=== PATIENT | male | born 1945 | race Caucasian/White ===

== ENCOUNTER 2020-05-08 06:45 | Outpatient (NON) | payer MEDICARE, SELFPAY ==
[2020-05-08 19:00] LABS: SARS-CoV-2 RNA PCR Negative
== END 2020-05-08 06:46 ==
PROVIDERS: PCP Internal Medicine; Visit Provider Internal Medicine
DX: Z20.828 Contact with and (suspected) exposure to other viral communicable diseases (principal); R68.89 Other general symptoms and signs
CPT/HCPCS: 87635; C9803; U0003

== ENCOUNTER → 2021-06-11 11:22 | Outpatient (CLI) | payer MEDICARE, SELFPAY ==
--- NOTE | ~2021-06-11 | XR_ITS ---
XR lumbar spine min 4V DATE: 06/11/2021 12:24 INDICATION: Low back pain TECHNIQUE: AP, lateral, bilateral oblique views and coned lateral lumbosacral view COMPARISON: 02/13/2011 lumbar spine FINDINGS: There is diffuse osteopenia. Normal alignment of the lumbar spine. No fracture, bone destruction, spondylolysis or spondylolisthes is. There is mild degenerative disease at L3-4 and L4-5 primarily. The sacroiliac joints are intact. IMPRESSION: Diffuse osteopenia Mild degenerative disc disease Reviewed, dictated and finalized at location A. [employer] C[employer] COORDINATOR
--- NOTE | ~2021-06-11 | XR_ITS ---
XR hip LT 2V w AP pelvis DATE: 06/11/2021 12:24 INDICATION: Left hip pain TECHNIQUE: AP, lateral views of left hip. AP pelvis. COMPARISON: None FINDINGS: The pubic symphysis and sacroiliac joints are normally aligned. No pelvic fracture or bone destruction. No fracture or dislocation, avascular necrosis or bone destruction of the left hip. There is mild lef t hip osteoarthritis. IMPRESSION: Mild left hip osteoarthritis Reviewed, dictated and finalized at location A. COVERER
== END ==
PROVIDERS: PCP Nurse Practitioner; Visit Provider Nurse Practitioner
DX: M16.12 Unilateral primary osteoarthritis, left hip (principal); M51.36 Other intervertebral disc degeneration, lumbar region; M85.88 Other specified disorders of bone density and structure, other site
CPT/HCPCS: 72110; 73502

== ENCOUNTER 2021-07-29 00:12 | Day surgery (SDC) | payer MEDICARE, SELFPAY ==
[2021-07-11 14:17] VITALS: BMI 25.9
[2021-07-29 07:55] VITALS: BP 138/84; PULSE 74; RESP 18; TEMP 35.8; O2SAT 97; BMI 25.1
[2021-07-29] MEDS: LACTATED RINGERS 1,000 ML 150 ML IV CONT (08:18)
--- NOTE | 2021-07-29 08:18 | WPDANESEPPF ---
Anes - Initial Pre Proc Eval Procedure: Operation Date: 07/29/21 09:00 Proposed Procedures p Screening Colonoscopy - Chalo Noel MD Date/Time: 07/29/21 08:18 Surgeon: Chalo Noel MD Pre Op Diagnosis: family hx of colon ca Patient Data Age: 75 Gender: M Height: 1.8 m Weight: 81.8 kg Last Vital Signs Temp 35.8 C L 07/29/21 07:55 Pulse 74 07/29/21 07:55 Resp 18 07/29/21 07:55 BP 138/84 07/29/21 07:55 Pulse Ox 97 07/29/21 07:55 Allergies Allergy/AdvReac Type Severity Reaction Status Date / Time shellfish derived Allergy Unknown Rash Verified 07/29/21 08:04 Sulfa (Sulfonamide Allergy Unknown Rash Verified 07/29/21 08:04 Antibiotics) SHELLFISH Allergy Unknown Rash Uncoded 07/29/21 08:04 Home Medications Medication Instructions Recorded Confirmed Type omega-3 acid ethyl esters 1 gram 4 cap PO DAILY 90 Days #360 cap 07/02/20 07/29/21 Rx capsule aspirin 325 mg tablet 325 mg PO DAILY 12/18/20 07/29/21 History levothyroxine 25 mcg tablet 25 mcg PO DAILY 90 Days #90 tablet 04/29/21 07/29/21 Rx ascorbic acid (vitamin C) 500 mg 500 mg PO DAILY cap 05/14/21 07/29/21 History capsule cholecalciferol (vitamin D3) 25 25 mcg PO DAILY 05/14/21 07/29/21 History mcg (1,000 unit) capsule metoprolol tartrate 25 mg tablet 25 mg PO BID tablet 05/14/21 07/29/21 History primidone 50 mg tablet 50 mg PO QHS #90 tablet 05/14/21 07/29/21 Rx methylprednisolone 4 mg tablets in See Rx Instructions PO PER PKG DIR 06/11/21 07/29/21 Rx a dose pack #21 ea finasteride [Proscar] 5 mg PO DAILY 07/11/21 07/29/21 History pitavastatin calcium [Livalo] 1 mg PO DAILY 07/11/21 07/29/21 History Patient hx anesthesia problems: none Family hx anesthesia problems: none Results Review: All pre-operative results and documents have been reviewed as part of the pre-operative evaluation. [facility] Past Medical History Medical History Benign prostatic hyperplasia with lower urinary tract symptoms Family history of colon cancer Hypothyroidism Mixed hyperlipidemia Pacemaker (~2012) Vitamin D deficiency, unspecified Surgical History Surgical History Status cardiac pacemaker 2012 Family History Family History Father Hypertension Heart disease Mother Parkinson disease Sibling Cerebrovascular accident Grandparent Cancer paternal grandparent Heart disease both maternal and paternal grandparents Hypertension maternal grandparent Social History Social History Years smoked: 2 Smoking status: Former smoker Second hand tobacco smoke exposure: No Alcohol intake: current Drinks per week: 7 Alcohol use details: 2 drinks per evening Substance use: never Substance use type: does not use Anes - Eval Final PreProcedure Day of Procedure 07/29/21 08:18 Patient weight: normal Heart: regular rate and rhythm Lungs: clear to auscultation Airway: Mallampati scale class II Neurological: alert and oriented Last oral intake: >/= 8 hours ASA classification: III Emergent: no Anesthetic plan: proceed Anesthesia type and monitoring: general GIVS and standard monitoring Results Review: All pre-operative results and documents have been reviewed as part of the pre-operative evaluation. Informed Consent: The patient's anesthetic plan and its attendant risks and benefits were discussed with the patient/family/POA. Questions were solicited and answers provided to the satisfaction of the patient/family/POA.
--- NOTE | 2021-07-29 08:32 | PM.HPGS ---
History of Present Illness History of Present Illness Consent: Risks, benefits, and alternatives have been discussed and questions answered. Patient agrees to proceed with procedure. Chief complaint: family hx of colon ca Narrative: Alan Frederick is a 75 year old male here for colonoscopy, lat one about 5 years ago and brother had colon cancer. Review of Systems Constitutional: Constitutional: Denies headache(s) and Denies weakness Eyes: Eyes: Denies blurry vision ENT: Reports Normal hearing present, Denies headache(s) and Denies neck pain Cardiovascular: Cardiovascular: Denies chest pain and Denies dyspnea Respiratory: Respiratory: Denies dyspnea Gastrointestinal: Gastrointestinal: Reports no additional gastrointestinal complaints Genitourinary: Genitourinary: Denies dysuria Musculoskeletal: Musculoskeletal: Denies neck pain Integumentary/Breasts: Skin/Breast: Denies dry skin Neurologic: Reports Normal hearing present, Denies headache(s) and Denies weakness Psychiatric: Psychiatric: Denies anxiety Endocrine: Endocrine: Denies change in body appearance Hematologic/Lymphatic: Hematologic/Lymphatic: Denies easy bleeding Allergic/Immunologic: Allergic/Immunologic: Denies urticaria [facility] Past Medical History Medical History (Updated 07/29/21 @ 08:34 by Chalo Noel MD) Benign prostatic hyperplasia with lower urinary tract symptoms Colon cancer screening Family history of colon cancer Hypothyroidism Mixed hyperlipidemia Pacemaker (~2012) Vitamin D deficiency, unspecified Surgical History Surgical History Status cardiac pacemaker 2012 Family History Family History Father Hypertension Heart disease Mother Parkinson disease Sibling Cerebrovascular accident Grandparent Cancer paternal grandparent Heart disease both maternal and paternal grandparents Hypertension maternal grandparent Social History Social History Years smoked: 2 Smoking status: Former smoker Second hand tobacco smoke exposure: No Alcohol intake: current Drinks per week: 7 Alcohol use details: 2 drinks per evening Substance use: never Substance use type: does not use Meds Home Medications and Allergies Home Medications Medication Instructions Recorded Confirmed Type omega-3 acid ethyl esters 1 gram 4 cap PO DAILY 90 Days #360 cap 07/02/20 07/29/21 Rx capsule aspirin 325 mg tablet 325 mg PO DAILY 12/18/20 07/29/21 History levothyroxine 25 mcg tablet 25 mcg PO DAILY 90 Days #90 tablet 04/29/21 07/29/21 Rx ascorbic acid (vitamin C) 500 mg 500 mg PO DAILY cap 05/14/21 07/29/21 History capsule cholecalciferol (vitamin D3) 25 25 mcg PO DAILY 05/14/21 07/29/21 History mcg (1,000 unit) capsule metoprolol tartrate 25 mg tablet 25 mg PO BID tablet 05/14/21 07/29/21 History primidone 50 mg tablet 50 mg PO QHS #90 tablet 05/14/21 07/29/21 Rx methylprednisolone 4 mg tablets in See Rx Instructions PO PER PKG DIR 06/11/21 07/29/21 Rx a dose pack #21 ea finasteride [Proscar] 5 mg PO DAILY 07/11/21 07/29/21 History pitavastatin calcium [Livalo] 1 mg PO DAILY 07/11/21 07/29/21 History Allergies Allergy/AdvReac Type Severity Reaction Status Date / Time shellfish derived Allergy Unknown Rash Verified 07/29/21 08:04 Sulfa (Sulfonamide Allergy Unknown Rash Verified 07/29/21 08:04 Antibiotics) SHELLFISH Allergy Unknown Rash Uncoded 07/29/21 08:04 Vital Signs Vital Signs - 24 hr 07/29/21 07:55 Temperature 96.5 F L Pulse Rate 74 Respiratory Rate 18 Blood Pressure 138/84 Pulse Oximetry 97 Exam Const: General: comfortable and no acute distress HENMT: General nose exam: Normal nares present Eyes: General: appearance normal, both eyes and all related structures Neck: Neck: no J
[2021-07-29 08:52] VITALS: BP 91/56; PULSE 64; RESP 11; O2SAT 96
[2021-07-29 09:02] VITALS: BP 83/64; PULSE 60; RESP 16; O2SAT 98
[2021-07-29 09:12] VITALS: BP 113/80; PULSE 60; RESP 18; O2SAT 100
== END 2021-07-29 09:47 | disposition home or self-care (01) ==
PROVIDERS: PCP Family Medicine; Visit Provider Internal Medicine Gastroenterology
PROC: 0DJD8ZZ Inspection of Lower Intestinal Tract, Via Natural or Artificial Opening Endoscopic (ICD-10-PCS; CPT 45378; principal; 2021-07-29 09:00)
DX: Z12.11 Encounter for screening for malignant neoplasm of colon (principal); Z80.0 Family history of malignant neoplasm of digestive organs; K57.30 Diverticulosis of large intestine without perforation or abscess without bleeding; K64.8 Other hemorrhoids; N40.1 Benign prostatic hyperplasia with lower urinary tract symptoms; E03.9 Hypothyroidism, unspecified; E78.2 Mixed hyperlipidemia; E55.9 Vitamin D deficiency, unspecified; Z95.0 Presence of cardiac pacemaker; Z87.891 Personal history of nicotine dependence; Z79.82 Long term (current) use of aspirin
CPT/HCPCS: G0105; J2704; J7120

== ENCOUNTER 2022-05-28 09:38 | Outpatient (CLI) | payer MEDICARE, SELFPAY ==
[2022-05-28 19:14] LABS: Basophils Percent Auto 0.7 % (0.2-1.2); Eosinophils Absolute Auto 0.2 K/mm3 (0-0.3); Eosinophils Percent Auto 3.7 % (0-4.4); Hematocrit 46.4 % (42.0-52.0); Hemoglobin 15.2 g/dL (14.0-18.0); Immature Granulocyte Absolute 0.02 K/mm3 (0.00-0.031); Immature Granulocyte Percent A 0.4 % (0-0.5); Lymphocytes Absolute Auto 1.87 K/mm3 (0.9-3.2); Mean Corpuscular HGB Conc 32.8 g/dl (32-36); Mean Corpuscular Hemoglobin 32.4 pg (26-34); Mean Corpuscular Volume 98.9 fl (80-100); Monocytes Absolute Auto 0.5 K/mm3 (0.1-0.6); Monocytes Percent Auto 11.2 % (2.6-8.5); Platelet Count Result 233 k/mm3 (150-375); Red Blood Count 4.69 M/mm3 (4.6-6.20); Red Cell Distribution Width 12.2 % (11.5-14.5); White Blood Count 4.6 K/mm3 (4.5-10.0)
[2022-05-28 19:43] LABS: Alanine Aminotransferase 27 U/L (6-50); Albumin Level 4.5 g/dL (3.5-5.1); Alkaline Phosphatase 53 U/L (38-126); Anion Gap 10 mmol/L (8-16); Aspartate Amino Transferase 34 U/L (17-59); Bilirubin,Total 0.5 mg/dL (0.2-1.3); Blood Urea Nitrogen 17 mg/dL (9-20); Calcium 8.6 mg/dL (8.4-10.2); Carbon Dioxide 26 mmol/L (22-30); Chloride 100 mmol/L (98-107); Cholesterol 217 mg/dL (0-200); Estimated Glomerular Filt Rate > 60; Glucose 103 mg/dL (65-110); HDL Direct 51 mg/dL; Potassium 4.5 mmol/L (3.4-5.0); Sodium 136 mmol/L (137-145); Triglycerides 121 mg/dL (<150)
[2022-05-28 19:53] LABS: LDL Cholesterol Direct 113 mg/dL
[2022-05-28 20:05] LABS: Vitamin D 25 Hydroxy 45.1 ng/mL
== END 2022-05-28 09:39 | disposition home or self-care (01) ==
LOC: ANHGOSHLAB 09:43
PROVIDERS: PCP Family Medicine; Visit Provider Family Medicine
DX: Z00.00 Encounter for general adult medical examination without abnormal findings (principal); E78.5 Hyperlipidemia, unspecified; E03.9 Hypothyroidism, unspecified; E55.9 Vitamin D deficiency, unspecified; Z79.899 Other long term (current) drug therapy; E53.8 Deficiency of other specified B group vitamins
CPT/HCPCS: 36415; 80053; 80061; 82306; 82607; 84443; 85025

== ENCOUNTER 2022-11-21 08:54 | Emergency (ER) | payer MEDICARE, SELFPAY ==
--- NOTE | 2022-11-21 09:07 | ED.WOUNDLAC ---
HPI - Wound/Laceration General Chief Complaint: Wound/Laceration Stated Complaint: FINGER LACERATION Time Seen by Provider: 11/21/22 09:07 Source: patient Mode of arrival: ambulatory Limitations: no limitations History of Present Illness HPI narrative: 76-year-old male presents with laceration to his left index finger. Patient reports that he was trimming a branch a tree with his new pocket knife and plate was very sharp. Injury happened approximately 30 minutes prior to arrival. Patient reports that he takes blood thinners so is bleeding more than usual. Range of motion and distal neurovascularly intact. All systems reviewed and negative except as noted above. Related Data Home Medications Medication Instructions Recorded Confirmed ascorbic acid (vitamin C) 500 mg 500 mg PO DAILY 05/14/21 11/21/22 capsule cholecalciferol (vitamin D3) 25 25 mcg PO DAILY 05/14/21 11/21/22 mcg (1,000 unit) capsule metoprolol tartrate 25 mg tablet 25 mg PO BID 05/14/21 11/21/22 finasteride 5 mg tablet (Proscar) 5 mg PO DAILY 07/11/21 11/21/22 omega-3 acid ethyl esters 1 gram 2 cap PO DAILY 05/27/22 11/21/22 capsule dabigatran etexilate 150 mg 150 mg PO BID 06/23/22 11/21/22 capsule (Pradaxa) nitroglycerin 0.4 mg sublingual 0.4 mg sublingual Q5M PRN Chest 06/23/22 11/21/22 tablet Pain Allergies Allergy/AdvReac Type Severity Reaction Status Date / Time shellfish derived Allergy Unknown Rash Verified 06/23/22 13:04 Sulfa (Sulfonamide Allergy Unknown Rash Verified 06/23/22 13:04 Antibiotics) SHELLFISH Allergy Unknown Rash Uncoded 06/23/22 13:04 Review of Systems Review of Systems: CONSTITUTIONAL: Denies fever, chills, or sweats. EYES: Denies visual changes, redness, or discharge. ENT: Denies rhinorrhea, congestion, sore throat, or otalgia. CARDIOVASCULAR: Denies chest pain, palpitations, or edema. RESPIRATORY: Denies cough or dyspnea. GASTROINTESTINAL: Denies abdominal pain, nausea, vomiting, or diarrhea. GENITOURINARY: Denies dysuria or hematuria. SKIN: Denies rash or itching. Reports laceration to left index finger. MUSCULOSKELETAL: Denies back pain, joint pain, or myalgia. NEUROLOGIC: Denies headache, numbness, or weakness. PSYCHIATRIC: Denies anxiety or depression. All other systems reviewed are negative, except as documented in HPI. [facility] Past Medical History Medical History Benign prostatic hyperplasia with lower urinary tract symptoms Colon cancer screening Family history of colon cancer Hypothyroidism Mixed hyperlipidemia Pacemaker (~2012) Vitamin D deficiency, unspecified Surgical History Surgical History Status cardiac pacemaker 2012 Family History Family History Father Hypertension Heart disease Mother Parkinson disease Sibling Cerebrovascular accident Grandparent Cancer paternal grandparent Heart disease both maternal and paternal grandparents Hypertension maternal grandparent Social History Social History Years smoked: 2 Smoking status: Never smoker Second hand tobacco smoke exposure: No Alcohol intake: current Drinks per week: 7 Alcohol use details: 2 drinks per evening Substance use: never Substance use type: does not use Living arrangements: with family Comments At time of signature, agree with nursing past medical, surgical, social and family history. There is no relevant family history pertinent to the presenting complaint. Exam Narrative: GENERAL: This is a well-nourished, well-developed patient, in no apparent distress. HEAD: normocephalic, atraumatic. EYES: PERRL. Sclera clear/white. Vision is grossly intact. EARS: External ears normal NOSE: External nose normal NECK: Neck supple, non-tender wi
[2022-11-21 09:09] VITALS: BP 135/86; PULSE 62; RESP 16; TEMP 36.4; O2SAT 99
== END 2022-11-21 09:57 | disposition home or self-care (01) ==
PROVIDERS: Emergency Provider Nurse Practitioner Family; PCP Family Medicine
DX: S61.211A Laceration without foreign body of left index finger without damage to nail, initial encounter (principal); W26.0XXA Contact with knife, initial encounter; E03.9 Hypothyroidism, unspecified; E78.2 Mixed hyperlipidemia; E55.9 Vitamin D deficiency, unspecified; N40.1 Benign prostatic hyperplasia with lower urinary tract symptoms; Z95.0 Presence of cardiac pacemaker
CPT/HCPCS: 12001; 99212; G0463

== ENCOUNTER 2022-12-04 12:53 | Outpatient (CLI) | payer MEDICARE, SELFPAY ==
[2022-12-04 19:23] LABS: Alanine Aminotransferase 23 U/L (6-50); Albumin Level 4.2 g/dL (3.5-5.1); Alkaline Phosphatase 58 U/L (38-126); Anion Gap 5 mmol/L (8-16); Aspartate Amino Transferase 50 U/L (17-59); Bilirubin,Total 0.7 mg/dL (0.2-1.3); Blood Urea Nitrogen 18 mg/dL (9-20); Calcium 8.7 mg/dL (8.4-10.2); Carbon Dioxide 30 mmol/L (22-30); Chloride 101 mmol/L (98-107); Estimated Glomerular Filt Rate > 60; Glucose 86 mg/dL (65-110); Sodium 136 mmol/L (137-145)
== END 2022-12-04 12:54 | disposition home or self-care (01) ==
LOC: ANHGOSHLAB 12:55
PROVIDERS: PCP Family Medicine; Visit Provider Family Medicine
DX: G25.0 Essential tremor (principal); E78.2 Mixed hyperlipidemia; E03.9 Hypothyroidism, unspecified
CPT/HCPCS: 36415; 80053; 84443

== ENCOUNTER 2023-01-31 11:08 | Emergency (ER) | payer MEDICARE, SELFPAY ==
[2023-01-31 11:44] VITALS: BP 126/94; PULSE 65; RESP 16; O2SAT 99
--- NOTE | 2023-01-31 11:49 | ECG_ITS ---
Measurements Intervals [place] Rate: 65 P: [place]: 0 QRS: -56 QRSD: 165 T: 97 QT: 459 QTc: 478 Interpretive Statements ELECTRONIC VENTRICULAR PACEMAKER NO FURTHER INTERPRETATION IS POSSIBLE ATYPICAL ECG NO PREVIOUS ECG AVAILABLE FOR COMPARISON Electronically Signed On 01-31-2023 16:37:27 CDT by Leonel ORELLANA
--- NOTE | 2023-01-31 12:00 | ED.CHESTPAIN ---
HPI - Chest Pain General Chief Complaint: Chest Pain Stated Complaint: short of breath,indegestion with chest pain Source: patient and RN notes reviewed History of Present Illness HPI narrative: 77-year-old male with history of a-fib and pacemaker, presents to urgent care with complaints of intermittent chest pain since 04:30 this morning. Patient states he woke up in a cold sweat, stood up, and fell to the ground. Patient denies any LOC or head injury. Patient reports shortness of breath with any exertion. Patient is also reporting head fogginess. Denies any recent illness including fevers, vomiting, or diarrhea. Related Data Home Medications Medication Instructions Recorded Confirmed ascorbic acid (vitamin C) 500 mg 500 mg PO DAILY 05/14/21 01/31/23 capsule cholecalciferol (vitamin D3) 25 25 mcg PO DAILY 05/14/21 01/31/23 mcg (1,000 unit) capsule finasteride 5 mg tablet (Proscar) 5 mg PO DAILY 07/11/21 01/31/23 omega-3 acid ethyl esters 1 gram 2 cap PO DAILY 05/27/22 01/31/23 capsule nitroglycerin 0.4 mg sublingual 0.4 mg sublingual Q5M PRN Chest 06/23/22 01/31/23 tablet Pain rivaroxaban 20 mg tablet (Xarelto) 20 mg PO DAILY 12/01/22 01/31/23 metoprolol tartrate 50 mg tablet 25 mg PO BID 12/03/22 01/31/23 Allergies Allergy/AdvReac Type Severity Reaction Status Date / Time shellfish derived Allergy Unknown Rash Verified 01/31/23 11:54 Sulfa (Sulfonamide Allergy Unknown Rash Verified 01/31/23 11:54 Antibiotics) SHELLFISH Allergy Unknown Rash Uncoded 01/31/23 11:54 Review of Systems Review of Systems: CONSTITUTIONAL: Denies fever, chills, or sweats. EYES: Denies visual changes, redness, or discharge. ENT: Denies otalgia and sore throat CARDIOVASCULAR: Chest pains RESPIRATORY: dyspnea on exertion GASTROINTESTINAL: Denies abdominal pain, nausea, vomiting, or diarrhea. GENITOURINARY: Denies dysuria or hematuria. SKIN: Denies rash or itching. MUSCULOSKELETAL: Denies back pain, joint pain, or myalgia. NEUROLOGIC: Denies headache, numbness, or weakness. Pertinent positives per HPI. PMFSH Past Medical History Medical History Benign prostatic hyperplasia with lower urinary tract symptoms Colon cancer screening Family history of colon cancer History of sick sinus syndrome Hypothyroidism Mixed hyperlipidemia Pacemaker (~2012) Paroxysmal atrial fibrillation Vitamin D deficiency, unspecified Surgical History Surgical History Status cardiac pacemaker 2012 Family History Family History Father Hypertension Heart disease Mother Parkinson disease Sibling Cerebrovascular accident Grandparent Cancer paternal grandparent Heart disease both maternal and paternal grandparents Hypertension maternal grandparent Social History Social History Years smoked: 2 Smoking status: Never smoker Second hand tobacco smoke exposure: No Alcohol intake: current Drinks per week: 7 Alcohol use details: 2 drinks per evening Substance use: never Substance use type: does not use Lack of Transportation: No Lack of Food: Never True Current Housing: I Have Housing Concerned About Future Housing: No Difficulty Paying Gas/Electric Bills: No Difficulty Paying for Meds: No Currently Unemployed: No Education: Bachelor's Degree Difficulty w/ Childcare or Family Care: No Living arrangements: with family Gender identity (if verbalized by the patient): Male Sexual Orientation (if Verbalized by the Patient): Straight or Heterosexual Spiritual care concerns: No Comments At the time of my signature, I reviewed and agree with the nursing past medical, surgical, social, and family history. There is no relevant family history p
== END 2023-01-31 12:10 | disposition short-term general hospital (02) ==
PROVIDERS: Emergency Provider Nurse Practitioner Family; PCP Family Medicine
DX: R07.9 Chest pain, unspecified (principal); N40.1 Benign prostatic hyperplasia with lower urinary tract symptoms; E03.9 Hypothyroidism, unspecified; E78.2 Mixed hyperlipidemia; I48.0 Paroxysmal atrial fibrillation; E55.9 Vitamin D deficiency, unspecified; Z95.0 Presence of cardiac pacemaker
CPT/HCPCS: 93005; 99215; G0463

== ENCOUNTER 2023-01-31 12:45 | Observation (INO) | payer MEDICARE, SELFPAY ==
[2023-01-31] VITALS (24 sets, daily range): BP systolic 93–136; BP diastolic 54–94; PULSE 49–131; RESP 11–24; TEMP 36.4–36.8; O2SAT 96–100
--- NOTE | ~2023-01-31 | CT_ITS ---
EXAMINATION: CTA chest PE protocol DATE: 02/01/2023 08:53 INDICATION: Syncope. TECHNIQUE: Computed tomography angiography (CTA) of the chest was performed with 100 mL Omnipaque-350 intravenous contrast timed to evaluate the pulmonary arteries. Coronal maximum intensity projection 3D-reconstructions were created by the technologist. Automated exposure control and iterative reconst ruction technique were employed. The dose-length product was 412.43 mGy-cm. COMPARISON: Chest CT 12/01/2012 FINDINGS: There is mild scarring at the lung apices. There is mild atelectasis bilaterally. No pleura l effusion. The heart size is normal. There are coronary artery calcifications. No pericardial effusi on. There is a left chest wall pacer with leads in the right atrium and right ventricle. Calcified ri ght hilar lymph nodes are consistent with old granulomatous disease. There is no pulmonary embolus. T here is ectasia of ascending aorta measuring 4.1 cm. Calcifications in the liver consistent with old granulomatous disease. There is severe cervical spondylosis. IMPRESSION: 1. No pulmonary embolus. Reviewed, dictated and finalized at location A. IMPRESSION: 1. No pulmonary embolus.
--- NOTE | ~2023-01-31 | CT_ITS ---
EXAMINATION: CT cervical spine wo con DATE: 01/31/2023 14:11 INDICATION: Head injury. Neck pain. TECHNIQUE: Computed tomography (CT) of the cervical spine was performed without intravenous contrast. Automated exposure control and iterative reconstruction technique were employed. The dose-length pro duct was 435.03 mGy-cm. COMPARISON: None FINDINGS: There is 3 degrees levocurvature of cervical spine. There is kyphosis of cervical spine. Ve rtebral body heights are normal. There is mildly decreased disc height at C4-C5 and C5-C6 and severel y decreased disc height at C6-C7. C1 ring is ununited posteriorly, a normal variant. The following di sc levels are specifically discussed: C2-C3: There is no uncovertebral joint osteoarthritis. There is moderate right and mild left facet dee int osteoarthritis. There is no neural foraminal stenosis. There is no central canal stenosis. C3-C4: There is mild right uncovertebral joint osteoarthritis. There is mild right facet joint osteoa rthritis. There is no neural foraminal stenosis. There is no central canal stenosis. C4-C5: There is severe right and mild left uncovertebral joint osteoarthritis. There is mild bilatera l facet joint osteoarthritis. There is mild bilateral neural foraminal stenosis. There is mild centra l canal stenosis. C5-C6: There is mild right and severe left uncovertebral joint osteoarthritis. There is no facet join t osteoarthritis. There is mild left neural foraminal stenosis. There is mild central canal stenosis. C6-C7: There is severe bilateral uncovertebral joint osteoarthritis. There is mild bilateral facet dee int osteoarthritis. There is mild bilateral neural foraminal stenosis. There is mild central canal st enosis. C7-T1: There is no uncovertebral joint osteoarthritis. There is moderate right and mild left facet dee int osteoarthritis. There is no neural foraminal stenosis. There is no central canal stenosis. IMPRESSION: 1. No fracture. 2. Severe cervical spondylosis. Reviewed, dictated and finalized at location A.
--- NOTE | ~2023-01-31 | NM_ITS ---
EXAMINATION: NM noam stress w perfusion DATE: 02/02/2023 12:20 INDICATION: Shortness of breath with exertion TECHNIQUE: Rest images were obtained following intravenous administration of 10.4 mCi Tc99m tetrofosm in (Myoview). The patient was infused intravenously with Lexiscan (Regadenoson). Then, 32.4 mCi Tc99m tetrofosmin (Myoview) was administered intravenously, and stress images were obtained. Data was jaret nstructed into short axis and horizontal and vertical long axis SPECT images. Gated SPECT images were also obtained. COMPARISON: None. FINDINGS: There is no definite reversible or fixed perfusion abnormality to suggest ischemia or infar ction. There is normal left ventricular chamber size, wall motion and ejection fraction. Left ventr icular ejection fraction measures >70%. IMPRESSION: 1. Normal myocardial perfusion at rest and during stress. 2. Left ventricular ejection fraction measuring >70%. Reviewed, dictated and finalized at location A.
--- NOTE | ~2023-01-31 | CT_ITS ---
EXAMINATION: CT brain wo con DATE: 01/31/2023 14:11 INDICATION: Head injury. TECHNIQUE: Computed tomography (CT) of the head was performed without intravenous contrast. The mA wa s adjusted according to patient size. Iterative reconstruction technique was employed. The dose-lengt h product was 605.33 mGy-cm. COMPARISON: None FINDINGS: There is no intracranial hemorrhage, acute infarction, or abnormal intracranial mass lesion . The ventricles are normal in size. The paranasal sinuses are clear. The mastoid air cells are ayla l. IMPRESSION: 1. Normal brain. Reviewed, dictated and finalized at location A. IMPRESSION: 1. Normal brain.
--- NOTE | ~2023-01-31 | XR_ITS ---
EXAMINATION: XR chest 2V DATE: 01/31/2023 13:31 INDICATION: Chest pain. Shortness of breath. TECHNIQUE: Frontal and lateral views of the chest were obtained. COMPARISON: Chest single view 12/19/2016 FINDINGS: The chest demonstrates clear lungs without pneumonia, pleural effusion, or pneumothorax. Ca lcified mediastinal lymph nodes are consistent with old granulomatous disease. The heart size is norm al. There is a left chest wall pacer with leads in the right atrium and right ventricle. IMPRESSION: 1. No acute cardiopulmonary disease. Reviewed, dictated and finalized at location A.
--- NOTE | 2023-01-31 12:57 | ECG_ITS ---
Measurements Intervals [place] Rate: 65 P: [place]: 0 QRS: -56 QRSD: 165 T: 97 QT: 459 QTc: 478 Interpretive Statements ELECTRONIC VENTRICULAR PACEMAKER NO FURTHER INTERPRETATION IS POSSIBLE ATYPICAL ECG COMPARED TO ECG 01/31/2023 11:50:27 NO SIGNIFICANT CHANGES Electronically Signed On 02-02-2023 8:38:32 CDT by Leonel Elliott D.O.
--- NOTE | 2023-01-31 12:58 | ED.CHESTPAIN ---
HPI - Chest Pain General Chief Complaint: Chest Pain Stated Complaint: CP/dyspnea/fall Time Seen by Provider: 01/31/23 13:03 Source: patient, family and EMS Mode of arrival: EMS Limitations: no limitations History of Present Illness HPI narrative: Patient 77 years old white male with At 430 this morning feeling hot and diaphoretic all over. Patient tried to go to the bathroom, slid against the door frame went down on the floor with slight bruises to left forehead. No loss of consciousness. Patient was able to go back to sleep after putting the thermometer down. 1 hour later patient got up feeling indigestion, tried to go to the market, felt something not right in his head and chest. Patient keeps burping and belching. Patient notices severe shortness of breath on any slight exertion. He denies any fever, chills, nausea, vomiting, having similar symptoms. 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 History of hypothyroidism and familial tremors. Patient does not smoke or uses drugs, drinks daily. Patient came to the emergency room by ambulance from urgent care. Currently feeling some discomfort at the right side of the chest. Related Data Home Medications Medication Instructions Recorded Confirmed ascorbic acid (vitamin C) 500 mg 500 mg PO DAILY 05/14/21 01/31/23 capsule cholecalciferol (vitamin D3) 25 25 mcg PO DAILY 05/14/21 01/31/23 mcg (1,000 unit) capsule finasteride 5 mg tablet (Proscar) 5 mg PO DAILY 07/11/21 01/31/23 omega-3 acid ethyl esters 1 gram 2 cap PO DAILY 05/27/22 01/31/23 capsule nitroglycerin 0.4 mg sublingual 0.4 mg sublingual Q5M PRN Chest 06/23/22 01/31/23 tablet Pain rivaroxaban 20 mg tablet (Xarelto) 20 mg PO DAILY 12/01/22 01/31/23 metoprolol tartrate 50 mg tablet 25 mg PO BID 12/03/22 01/31/23 Allergies Allergy/AdvReac Type Severity Reaction Status Date / Time shellfish derived Allergy Unknown Rash Verified 01/31/23 12:58 Sulfa (Sulfonamide Allergy Unknown Rash Verified 01/31/23 12:58 Antibiotics) SHELLFISH Allergy Unknown Rash Uncoded 01/31/23 11:54 Review of Systems Review of Systems: All systems reviewed & are unremarkable except as noted in HPI and below PMFSH Past Medical History Medical History Benign prostatic hyperplasia with lower urinary tract symptoms Colon cancer screening Family history of colon cancer History of sick sinus syndrome Hypothyroidism Mixed hyperlipidemia Pacemaker (~2012) Paroxysmal atrial fibrillation Vitamin D deficiency, unspecified Surgical History Surgical History Status cardiac pacemaker 2012 Family History Family History Father Hypertension Heart disease Mother Parkinson disease Sibling Cerebrovascular accident Grandparent Cancer paternal grandparent Heart disease both maternal and paternal grandparents Hypertension maternal grandparent Social History Social History Years smoked: 2 Smoking status: Never smoker Second hand tobacco smoke exposure: No Alcohol intake: current Drinks per week: 7 Alcohol use details: 2 drinks per evening Substance use: never Substance use type: does not use Lack of Transportation: No Lack of Food: Never True Current Housing: I Have Housing Concerned About Future Housing: No Difficulty Paying Gas/Electric Bills: No Difficulty Paying for Meds: No Currently Unemployed: No Education: Bachelor's Degree Difficulty w/ Childcare or Family Care: No Living arrangements: with family Gender identity (if verbalized by the patient): Male Sexual Orientation (if Verbalized by the Patient): Straight or Heterosexual Spiritual care concerns: No Exam Narrative: General appearance: Well-d
[2023-01-31 13:19] LABS: Basophils Percent Auto 0.4 % (0.2-1.2); Eosinophils Absolute Auto 0.1 K/mm3 (0-0.3); Eosinophils Percent Auto 1.2 % (0-4.4); Hematocrit 46.7 % (42.0-52.0); Hemoglobin 15.4 g/dL (14.0-18.0); Immature Granulocyte Absolute 0.02 K/mm3 (0.00-0.031); Immature Granulocyte Percent A 0.4 % (0-0.5); Lymphocytes Absolute Auto 1.63 K/mm3 (0.9-3.2); Lymphocytes Percent Auto 32.8 % (18.3-44.2); Mean Corpuscular Hemoglobin 33.1 pg (26-34); Mean Corpuscular Volume 100.4 fl (80-100); Mean Platelet Volume 9.1 fl (7.4-10.4); Monocytes Absolute Auto 0.5 K/mm3 (0.1-0.6); Monocytes Percent Auto 10.7 % (2.6-8.5); Neutrophils Absolute Auto 2.7 K/mm3 (1.3-6.7); Neutrophils Percent Auto 54.5 % (45.5-73.1); Platelet Count Result 218 k/mm3 (150-375); Red Blood Count 4.65 M/mm3 (4.6-6.20); Red Cell Distribution Width 12.3 % (11.5-14.5)
[2023-01-31 13:29] LABS: INR 1.2; Partial Thromboplastin Time 33.1 SECONDS (22.3-36.8); Prothrombin Time 15.5 Seconds (11.1-14.7)
[2023-01-31 13:30] LABS: Alanine Aminotransferase 36 U/L (6-50); Albumin Level 4.2 g/dL (3.5-5.1); Alkaline Phosphatase 43 U/L (38-126); Anion Gap 0 mmol/L (8-16); Aspartate Amino Transferase 43 U/L (17-59); Bilirubin,Total 0.5 mg/dL (0.2-1.3); Blood Urea Nitrogen 17 mg/dL (9-20); Calcium 8.9 mg/dL (8.4-10.2); Carbon Dioxide 31 mmol/L (22-30); Chloride 103 mmol/L (98-107); Estimated CRCL calculation 73 ml/min; Estimated Glomerular Filt Rate > 60; Glucose 102 mg/dL (65-110); Lipase 38 U/L (23-300); Potassium 4.7 mmol/L (3.4-5.0); Sodium 134 mmol/L (137-145)
[2023-01-31 13:41] LABS: Troponin I < 0.012 ng/mL (0.000-0.034)
[2023-01-31 13:58] LABS: Alveolar/Arterial O2 Gradient 27.4 mmHg; Base Excess ABG -0.4 mEq/l (+/-2.0); Fractional Inspired Oxygen 21 %; HCO3 ABG 24.3 mEq/l (22.0-26.0); Oxygen Content ABG 21.4 %vol (16.0-22.0); Oxygen Saturation ABG 94.9 % (95.0-100.0); Oxyhemoglobin 93.5 % THb (90.0-100.0); PCO2 ABG 40.3 mmHg (35.0-45.0); PO2 ABG 74.1 mmHg (80.0-100.0); PO2 FiO2 Ratio Arterial Blood 3.53 %; Total Hemoglobin 16.3 g/dL (12.0-18.0); pH ABG 7.398 (7.350-7.450)
[2023-01-31 13:59] LABS: Device ROOM AIR; Site Drawn LEFT RADIAL
[2023-01-31 14:11] LABS: Appearance Urine Clear (Clear); Bilirubin Urine Negative (Negative); Blood Urine Negative (Negative); Color Urine Yellow (Yellow); Glucose Urine UA Negative (Negative); Ketones Urine Negative (Negative); Leukocyte Esterase Ur Negative LEU/UL (Negative); Nitrate Urine Negative (Negative); Protein Urine Negative (Negative); Specific Grav Ur 1.006 (1.001-1.035); Urobilinogen Urine 0.2 mg/dL (<2.0)
[2023-01-31 14:15] LABS: Add Urine Microscopic? NO
[2023-01-31] MEDS: ASPIRIN 81 MG CHEWABLE TABLET 324 MG PO (15:07)
[2023-01-31 15:33] LABS: NT Pro B Type Natriuretic Pept 787 pg/mL (19.9-100)
[2023-01-31 15:39] LABS: D Dimer < 0.27 ug/mL (<0.48)
--- NOTE | 2023-01-31 16:27 | ADMGEN ---
This patient, Alan Frederick, was admitted to IMU Room 206-01. Patient/family oriented to hospital policies and general routines including ID bracelet, bed and alarms, visiting hours, pain management, procedures, bathroom and other care routines, personal items, smoking policy, room service/diet, and visiting hours. Information on how to activate the Rapid Response Team has been discussed. Patient/Family are encouraged to report perceived risks to care and to ask questions if they do not understand what they are told or what they should do.
[2023-01-31 16:33] LABS: Troponin I < 0.012 ng/mL (0.000-0.034)
--- NOTE | 2023-01-31 16:34 | ADMGEN ---
This patient, Alan Frederick, was admitted to IMU Room 206-01 at 1625. Patient/family oriented to hospital policies and general routines including ID bracelet, bed and alarms, visiting hours, pain management, procedures, bathroom and other care routines, personal items, smoking policy, room service/diet, and visiting hours. Information on how to activate the Rapid Response Team has been discussed. Patient/Family are encouraged to report perceived risks to care and to ask questions if they do not understand what they are told or what they should do.
--- NOTE | 2023-01-31 20:15 | PM.IMHP ---
H&P: HPI History of Present Illness Date/Time: 01/31/23 20:15 Chief Complaint: Chest pain Narrative: This is a 77-year-old male patient who woke up this morning around 430 he felt diaphoretic and warm all over. The patient stated that he attempted to go to the bathroom is sitting is the door frame and went down on the floor. The patient does have a bruise to his left forehead. He did not lose consciousness. The patient was able to go back to sleep however an hour later he woke up feeling and digestion. The patient was belching and has been short of breath with exertion. He denies any fever chills any nausea vomiting or diarrhea. The patient had the pacemaker placed proximally 8 years ago due to bradycardia. The patient is currently on Xarelto. The patient came to the emergency room via ambulance from the urgent care. Cardiac enzymes are negative x3. His urine is negative. He was given Tylenol aspirin nitroglycerin in the emergency room. The patient is being admitted to observation status on the date of service of 01/31/2023 Review of Systems Review of Systems: All systems reviewed & are unremarkable except as noted in HPI and below Constitutional: Constitutional: Reports as per HPI and Reports no additional constitutional complaints Eyes: Eyes: Reports as per HPI and Reports no additional eye complaints ENT: Reports system reviewed and no additional complaints, except as documented and Reports Normal hearing present Cardiovascular: Cardiovascular: Reports no additional cardiovascular complaints Respiratory: Respiratory: Reports no additional respiratory complaints and Reports no additional respiratory complaints Gastrointestinal: Gastrointestinal: Reports as per HPI and Reports no additional gastrointestinal complaints Musculoskeletal: Musculoskeletal: Reports no additional musculoskeletal complaints Integumentary/Breasts: Skin/Breast: Reports system reviewed and no additional complaints, except as docu and Reports as per HPI Neurologic: Reports system reviewed and no additional complaints, except as documented, Reports as per HPI and Reports Normal hearing present Psychiatric: Psychiatric: Reports no additional psychiatric complaints and Reports as per HPI Endocrine: Endocrine: Reports no additional endocrine complaints Hematologic/Lymphatic: Hematologic/Lymphatic: Reports no additional hematologic/lymphatic complaints Allergic/Immunologic: Allergic/Immunologic: Reports no additional allergic/immunologic complaints [facility] Past Medical History Medical History Benign prostatic hyperplasia with lower urinary tract symptoms Colon cancer screening Family history of colon cancer History of sick sinus syndrome Hypothyroidism Mixed hyperlipidemia Pacemaker (~2012) Paroxysmal atrial fibrillation Vitamin D deficiency, unspecified Surgical History Surgical History Status cardiac pacemaker 2012 Family History Family History Father Hypertension Heart disease Mother Parkinson disease Sibling Cerebrovascular accident Grandparent Cancer paternal grandparent Heart disease both maternal and paternal grandparents Hypertension maternal grandparent Social History Social History (Updated 01/31/23 @ 23:52 by Aviva Pino NP) Social History: The patient had 3 children 1 passed from suicide. The patient lives at home with his . The patient is retired. Lifelong nonsmoker. Code status full code Years smoked: 2 Smoking status: Never smoker Second hand tobacco smoke exposure: No Alcohol intake: never Drinks per week: 7 Alcohol use details: 2 drinks per evening Substance use: never Substance use type: does not use Lack of Transportation: No Lack of Food: Never True Current Housing: I Have Housing
[2023-01-31 20:36] LABS: Troponin I < 0.012 ng/mL (0.000-0.034)
[2023-01-31] MEDS: RIVAROXABAN 20 MG TABLET PO (23:47)
[2023-01-31] MEDS: PRIMIDONE 50 MG TABLET PO (23:47)
[2023-01-31] MEDS: METOPROLOL TARTRATE 25 MG TABLET PO (23:47)
[2023-02-01] VITALS (19 sets, daily range): BP systolic 70–128; BP diastolic 41–77; PULSE 65–66; RESP 16–20; TEMP 36.2–36.8; O2SAT 98–100
[2023-02-01 05:09] LABS: Basophils Percent Auto 0.6 % (0.2-1.2); Eosinophils Absolute Auto 0.2 K/mm3 (0-0.3); Eosinophils Percent Auto 2.3 % (0-4.4); Hemoglobin 14.5 g/dL (14.0-18.0); Immature Granulocyte Absolute 0.03 K/mm3 (0.00-0.031); Immature Granulocyte Percent A 0.4 % (0-0.5); Lymphocytes Absolute Auto 2.39 K/mm3 (0.9-3.2); Lymphocytes Percent Auto 34.3 % (18.3-44.2); Mean Corpuscular HGB Conc 32.2 g/dl (32-36); Mean Corpuscular Hemoglobin 32.7 pg (26-34); Mean Corpuscular Volume 101.4 fl (80-100); Mean Platelet Volume 9.5 fl (7.4-10.4); Monocytes Absolute Auto 0.7 K/mm3 (0.1-0.6); Monocytes Percent Auto 10.6 % (2.6-8.5); Neutrophils Absolute Auto 3.6 K/mm3 (1.3-6.7); Neutrophils Percent Auto 51.8 % (45.5-73.1); Platelet Count Result 220 k/mm3 (150-375); Red Blood Count 4.44 M/mm3 (4.6-6.20); Red Cell Distribution Width 12.1 % (11.5-14.5)
[2023-02-01 05:20] LABS: Alanine Aminotransferase 31 U/L (6-50); Albumin Level 3.7 g/dL (3.5-5.1); Alkaline Phosphatase 43 U/L (38-126); Anion Gap 1 mmol/L (8-16); Aspartate Amino Transferase 33 U/L (17-59); Bilirubin,Total 0.5 mg/dL (0.2-1.3); Blood Urea Nitrogen 18 mg/dL (9-20); Calcium 8.6 mg/dL (8.4-10.2); Carbon Dioxide 33 mmol/L (22-30); Chloride 103 mmol/L (98-107); Estimated CRCL calculation 59 ml/min; Estimated Glomerular Filt Rate > 60; Glucose 101 mg/dL (65-110); Magnesium 2.2 mg/dL (1.6-2.3); Potassium 4.1 mmol/L (3.4-5.0); Sodium 137 mmol/L (137-145)
[2023-02-01] MEDS: ASPIRIN 81 MG CHEWABLE TABLET PO (09:38)
[2023-02-01] MEDS: CHOLECALCIFEROL 1,000 UNITS TABLET 1000 UNITS PO (09:38)
[2023-02-01] MEDS: FINASTERIDE 5 MG TABLET PO (09:38)
[2023-02-01] MEDS: OMEGA 3 POLYUNSAT FATTY ACIDS 1 GM CAP 2 GM PO (09:38)
[2023-02-01] MEDS: METOPROLOL TARTRATE 25 MG TABLET PO (09:39)
[2023-02-01] MEDS: ASCORBIC ACID 500 MG TABLET PO (09:39)
[2023-02-01] MEDS: LEVOTHYROXINE SODIUM 25 MCG TABLET PO (09:39)
[2023-02-01 10:00] LABS: Folic Acid 11.3 ng/mL (2.76->20)
[2023-02-01 10:52] LABS: Influenza A QL RT-PCR Negative (Negative); Influenza B QL RT-PCR Negative (Negative); RSV RNA, RT-PCR Negative (Negative); SARS-CoV-2 RNA PCR Negative (Negative)
[2023-02-01 14:16] LABS: Free T4 Free Thyroxine Reflex 0.96 ng/dL (0.78-2.19)
--- NOTE | 2023-02-01 15:58 | PM.IMPN ---
Progress Note: A&P Assessment and Plan (1) Chest pain: Qualifiers: Chest pain type: unspecified Qualified Code(s): R07.9 - Chest pain, unspecified Code(s): R07.9 - Chest pain, unspecified Status: Inactive Assessment and Plan: Patient states he woke up with a cold sweat and when he went to the bathroom, he slid against the door frame went to the floor. He states he did not lose consciousness. He has also noted increasing shortness of breath even with mild exertion. He has atrial fibrillation and is on Xarelto. He has a history of pacemaker placement for sick sinus syndrome. Troponins are negative x3. EKG shows paced rhythm. Chest x-ray is clear. CTA of the chest showed no PE and only mild scarring in the apices. Echocardiogram has been ordered. Pacemaker interrogation has been ordered. Will proceed with Lexiscan stress test in the morning. Further recommendation as course dictates. (2) Pre-syncope: Code(s): R55 - Syncope and collapse Status: Acute Assessment and Plan: Patient with presyncopal symptoms associated with diaphoresis. It has also been having increasing shortness of breath with minimal exertion. Workup as mentioned above. UA is negative. No evidence pneumonia on CT. Influenza, RSV and COVID are negative. Consider viral etiology. Consider cardiac etiology as mentioned above. Possibly related to HoTN. orthostatic vital signs ordered (3) Hypotension: Code(s): I95.9 - Hypotension, unspecified Status: Acute Assessment and Plan: Patient's BP was normal on admission but dropped to 70/41 this morning. he did received his metoprolol 25mg the night before and actually had a 2nd dose this morning. His BP has tolerated this. This may be causing his symptoms of SOB and diaphroesis if his BP is low at times. Echo ordered. TSH normal. Check cortisol level. Start IV fluids. Decrease metoprolol dose and place parameters. (4) Paroxysmal atrial fibrillation: Code(s): I48.0 - Paroxysmal atrial fibrillation Status: Acute Assessment and Plan: Patient has paroxysmal atrial fibrillation. Currently paced rhythm noted on EKG. Pacemaker was placed for sick sinus syndrome. Continue Xarelto. Continue metoprolol. (5) Hypothyroidism: Qualifiers: Hypothyroidism type: acquired Qualified Code(s): E03.9 - Hypothyroidism, unspecified Code(s): E03.9 - Hypothyroidism, unspecified Status: Acute Assessment and Plan: TSH normal. Continue levothyroxine. (6) Benign prostatic hyperplasia with lower urinary tract symptoms: Qualifiers: Lower urinary tract symptom detail: unspecified Qualified Code(s): N40.1 - Benign prostatic hyperplasia with lower urinary tract symptoms Code(s): N40.1 - Benign prostatic hyperplasia with lower urinary tract symptoms Status: Acute Assessment and Plan: Stable. continue with finasteride. (7) Status cardiac pacemaker: Code(s): Z95.0 - Presence of cardiac pacemaker Status: Acute Assessment and Plan: As above. (8) Mixed hyperlipidemia: Code(s): E78.2 - Mixed hyperlipidemia Status: Acute Assessment and Plan: Stable. Continue with Sula 3. Subjective Date/time seen: 02/01/23 15:58 Interval history: 77yo male with pAFib on anticoagulation, HLD, PM for SSS and BPH here for chest pain and fall. No fever or chills. He was diaphoretic. He has been compliant with his Xarelto. His have being intermittent chest pain different locations. Symptoms are better after belching. No lightheadedness, chest pain or shortness of breath currently. No nausea or vomiting. Exam Narrative: AF 97.1 100/64 651 61 100% ra Gen - NARD Chest - CTA bilaterally, nml RR CV - RRR S1/S2. Tele showing mostly paced rhythm Abd - Soft, NT/ND, Positive BS Ext - No pedal edema. Negative Bj's sign Neuro - Alert a
[2023-02-01 16:12] LABS: Total Triiodothyronine (T3) 1.46 NG/ML (0.97-1.69)
[2023-02-01] MEDS: SODIUM CHLORIDE 0.9% IV 1,000 ML 100 ML IV CONT (18:07)
[2023-02-01] MEDS: RIVAROXABAN 20 MG TABLET PO (21:07)
[2023-02-01] MEDS: METOPROLOL TARTRATE 12.5 MG TABLET PO (21:08)
[2023-02-01] MEDS: PRIMIDONE 50 MG TABLET PO (21:09)
[2023-02-02] VITALS (16 sets, daily range): BP systolic 105–119; BP diastolic 56–84; PULSE 65–67; RESP 18–20; TEMP 36.1–36.6; O2SAT 99–100
--- NOTE | 2023-02-02 | ECHO_ITS ---
Patient Info Name: Alan Frederick Age: 77 years : 1945 Gender: Male Ht: 71 in Wt: 194 lbs BSA: 2.11 m2 HR: 65 bpm BP: 105 / 65 mmHg Heart Rhythm: Sinus Rhythm Technical Quality: Fair Exam Date: 02/02/2023 4:36 PM Exam Location: [facility] Patient Status: Inpatient Admit Date: 01/31/2023 Staff Ordering Physician: Aviva Pino NP Screen Handler: Kathy Walsh RDCS Attending Provider: Jamir Lama MD Referring Physician: Odette GUEVARA; Exam Type: CA echo doppler color flow Study Info Indications R06.02 - Shortness of breath R55 - Syncope and collapse Complete two-dimensional, color flow and Doppler transthoracic echocardiogram is performed. Summary 1. Complete two-dimensional, color flow and Doppler transthoracic echocardiogram is performed. 2. Normal left ventricular size with mild concentric hypertrophy. Good systolic function of all segments. Ejection fraction is 65-70%. Normal diastolic function. 3. Pacemaker noted in right ventricle. 4. Left atrial chamber dimension is mildly enlarged. 5. There is mild tricuspid valve regurgitation. 6. Mild pulmonary hypertension, estimated pulmonary arterial systolic pressure is 36 mmHg. 7. Dilated inferior vena cava with >50% collapse upon inspiration consistent with elevated right atrial pressure, 15 mmHg. 8. Probable sinus rhythm. Left Ventricle Left ventricular chamber dimension is normal. Left ventricular systolic function is normal, estimated at 65-70%. There is mildly increased left ventricular wall thickness. Left ventricular septal wall motion is normal. The left ventricular diastolic function is normal. Right Ventricle Right ventricular chamber dimension is normal. Right ventricular systolic function is normal. Left Atria Left atrial chamber dimension is mildly enlarged. Right Atria Right atrial chamber dimension is normal. Linear artifact in the right atrium suggestive of catheter(s), pacemaker lead(s), or ICD lead(s). Aortic Valve The aortic valve is trileaflet. There is no aortic valve sclerosis. There is no aortic valve stenosis. There is no aortic valve regurgitation. Pulmonic Valve The pulmonic valve is normal. There is no pulmonic valve stenosis. There is trace pulmonic regurgitation. Mitral Valve The mitral valve has thickened leaflets. There is no mitral valve stenosis. There is trace mitral valve regurgitation. Tricuspid Valve The tricuspid valve leaflets are normal. There is no significant tricuspid valve stenosis. There is mild tricuspid valve regurgitation. Mild pulmonary hypertension, estimated pulmonary arterial systolic pressure is 36 mmHg. Pericardium/Pleural The pericardium appears normal. There is no pericardial effusion. Inferior Vena Cava Dilated inferior vena cava with >50% collapse upon inspiration consistent with elevated right atrial pressure, 15 mmHg. Aorta The aortic root size at the sinus of Valsalva is normal. The prox ascending aorta size is normal. Left Ventricular Outflow Tract Name Value Normal LVOT 2D LVOT Diameter 2.0 cm LVOT Doppler LVOT Peak Gradient 2 mmHg LVOT Mean Gradient 2 mmHg
--- NOTE | 2023-02-02 | EST_ITS ---
Patient Info Name: Alan Frederick Age: 77 years : 1945 Gender: Male Ht: 71 in Wt: 194 lbs BSA: 2.11 m2 HR: 65 bpm BP: 125 / 77 mmHg Heart Rhythm: Paced Exam Date: 02/02/2023 11:05 AM Exam Location: [facility] Patient Status: Outpatient Admit Date: 01/31/2023 Staff Ordering Physician: Aivva Pino NP Attending Provider: Jamir Lama MD Exercise Technologist: Lauren Scott CT Nurse: DESEAN WINN Exam Type: CA stress noam w NM Study Info Indications R06.02 - Shortness of breath R55 - Syncope and collapse A regadenoson stress test was performed. Summary 1. Normal sinus rhythm alternates with electronic ventricularly paced rhythm. 2. Predominant rhythm during Lexiscan injection is electronic ventricular pacing. 3. Clinically unremarkable Lexiscan stress test which is electrocardiographically nondiagnostic because of electronically paced rhythm. 4. Myocardial perfusion imaging exam to be reported by Radiology. Protocol: Lexiscan Stress ECG Details Stage: REST Duration (min): 1 min : 14 sec HR (bpm): 66 SBP (mmHg): 125 DBP (mmHg): 77 Stage: REST Duration (min): 10 min : 28 sec HR (bpm): 66 SBP (mmHg): 125 DBP (mmHg): 77 Stage: STAGE 1 Duration (min): 1 min : 0 sec HR (bpm): 66 SBP (mmHg): 120 DBP (mmHg): 81 Stage: RECOVERY Duration (min): 1 min : 0 sec HR (bpm): 66 SBP (mmHg): 120 DBP (mmHg): 81 Stage: RECOVERY Duration (min): 2 min : 0 sec HR (bpm): 65 SBP (mmHg): 120 DBP (mmHg): 81 Stage: RECOVERY Duration (min): 3 min : 0 sec HR (bpm): 65 SBP (mmHg): 121 DBP (mmHg): 78 Stage: RECOVERY Duration (min): 3 min : 8 sec HR (bpm): 65 SBP (mmHg): 121 DBP (mmHg): 78 Rest HR: 66 bpm Peak HR: 67 bpm Rest Sys BP: 125 mmHg Peak Sys BP: 121 mmHg Max Pred HR: 144 bpm % Max Pred HR: 47 % Target HR: 122 bpm Max RPP: 8,107 bpm*mmHg Termination Reason: Completed protocol Total Time: 1 min : 0 sec Rest Matson BP: 77 mmHg Peak Matson BP: 78 mmHg Total Dose: 0.4 mg Resting ECG Normal sinus rhythm alternates with electronic ventricularly paced rhythm. Stress ECG Predominant rhythm during Lexiscan injection is electronic ventricular pacing. Report Signatures
[2023-02-02 04:22] LABS: Albumin Level 3.6 g/dL (3.5-5.1); Anion Gap 3 mmol/L (8-16); Blood Urea Nitrogen 16 mg/dL (9-20); Calcium 8.3 mg/dL (8.4-10.2); Carbon Dioxide 28 mmol/L (22-30); Chloride 106 mmol/L (98-107); Estimated CRCL calculation 73 ml/min; Estimated Glomerular Filt Rate > 60; Glucose 103 mg/dL (65-110); Phosphorus 3.8 mg/dL (2.5-4.5); Potassium 4.1 mmol/L (3.4-5.0); Sodium 137 mmol/L (137-145)
[2023-02-02 04:51] LABS: Cortisol Random 4.14 ug/dL
[2023-02-02] MEDS: COSYNTROPIN 0.25 MG/ML VIAL IV PUSH (08:39)
[2023-02-02] MEDS: FINASTERIDE 5 MG TABLET PO (08:42)
[2023-02-02] MEDS: OMEGA 3 POLYUNSAT FATTY ACIDS 1 GM CAP 2 GM PO (08:42)
[2023-02-02] MEDS: LEVOTHYROXINE SODIUM 25 MCG TABLET PO (08:42)
[2023-02-02] MEDS: ASPIRIN 81 MG CHEWABLE TABLET PO (08:42)
[2023-02-02] MEDS: METOPROLOL TARTRATE 12.5 MG TABLET PO (08:42)
[2023-02-02] MEDS: ASCORBIC ACID 500 MG TABLET PO (08:42)
[2023-02-02] MEDS: CHOLECALCIFEROL 1,000 UNITS TABLET 1000 UNITS PO (08:42)
--- NOTE | 2023-02-02 17:03 | PM.DS ---
DS: Admitting Diagnosis Discharge Date 02/02/23 Admitting Diagnosis Chest pain DS: Discharge Diagnosis Discharge Diagnosis (1) Chest pain: Qualifiers: Chest pain type: unspecified Qualified Code(s): R07.9 - Chest pain, unspecified Code(s): R07.9 - Chest pain, unspecified Status: Inactive (2) Pre-syncope: Code(s): R55 - Syncope and collapse Status: Acute (3) Hypotension: Code(s): I95.9 - Hypotension, unspecified Status: Acute (4) Paroxysmal atrial fibrillation: Code(s): I48.0 - Paroxysmal atrial fibrillation Status: Acute (5) Hypothyroidism: Qualifiers: Hypothyroidism type: acquired Qualified Code(s): E03.9 - Hypothyroidism, unspecified Code(s): E03.9 - Hypothyroidism, unspecified Status: Acute (6) Benign prostatic hyperplasia with lower urinary tract symptoms: Qualifiers: Lower urinary tract symptom detail: unspecified Qualified Code(s): N40.1 - Benign prostatic hyperplasia with lower urinary tract symptoms Code(s): N40.1 - Benign prostatic hyperplasia with lower urinary tract symptoms Status: Acute (7) Status cardiac pacemaker: Code(s): Z95.0 - Presence of cardiac pacemaker Status: Acute (8) Mixed hyperlipidemia: Code(s): E78.2 - Mixed hyperlipidemia Status: Acute DS: Summary Hospital Course Reason for hospitalization: 77yo male with pAFib on anticoagulation, HLD, PM for SSS and BPH here for chest pain and fall. Please see H&P for details. Hospital Course: Patient has noticed increasing SOB with mild exertion over the past few weeks. Prior to admission, patient states he woke up with a cold sweat. When he walked to the bathroom, he slid against the door frame and went to the floor.? He states he did not lose consciousness.?He has atrial fibrillation and is on Xarelto.? He has a history of pacemaker placement for sick sinus syndrome.? Troponins were negative x3.? EKG shows paced rhythm.? Chest x-ray was clear.? CTA of the chest showed no PE and only mild scarring in the apices.? Echo was ordered and results are pending.? Pacemaker interrogation was ordered but unable to be accomplished prior to discharge.?Patient had a Lexiscan stress test showing no definitive reversible or fixed perfusion abnormalities with EF 70%. Patient with presyncopal symptoms associated with diaphoresis. UA was clear.? No evidence pneumonia on CT.? Influenza, RSV and COVID were negative.?Possibly related to HoTN. Patient's BP was normal on admission but dropped to 70/41. TSH slightly elevated but not felt to be clinically significant. Cortisol level was low at 4.14 but normal response to stimulation test with Cosyntropin. ACTH is pending. We decreased his metoprolol dose and BP remained stable since. Patient feels well. He has been walking in halls without symptoms. He overall did well and was able to be discharged home on 02/02/23. Status at Discharge Cognitive/behavioral status at discharge: stable Time Spent with Patient Time attestation: Total time spent providing and/or coordinating discharge services: 38 minutes Time spent: Greater than 30 minutes Exam Narrative: AF 97.5 111/84 65 20 100% ra Gen - NARD Chest - CTA bilaterally, nml RR CV - RRR S1/S2. Tele showing mostly paced rhythm Abd - Soft, NT/ND, Positive BS Ext - No pedal edema Psych - Nml mood and affect Skin - Warm and dry DS: Data Data Completed and Pending Labs on day of discharge: Labs from last 24 hours 02/02/23 02/02/23 02/02/23 09:57 09:11 07:53 Sodium Potassium Chloride Carbon Dioxide Anion Gap BUN Creatinine Estim Creat Clear Calc Estimated GFR Glucose Calcium Phosphorus Magnesium Albumin Random Cortisol Cortisol Resp 30 Min 20.30 Cortisol Resp 60 Min 28.00 ACTH Pending 02/02/23 03:54 Sodium 137 Potassium 4.1 Chloride
--- NOTE | 2023-02-04 08:00 | PC.NURSE ---
ECHO results faxed to Dr. Del [place]. Dr. Daina becker.
[2023-02-06 14:49] LABS: Adrenocorticotropic Hormone 25 pg/mL (6-50)
--- NOTE | 2023-02-10 06:55 | PC.NURSE ---
ACTH is WNL at 25. Dr. Lama aware.
== END 2023-02-02 18:45 | disposition home or self-care (01) ==
LOC: ANHED 16:19 → ANHIMU 16:22
PROVIDERS: Nurse Practitioner; Admitting Provider Internal Medicine; Emergency Provider Emergency Medicine; PCP Family Medicine; Visit Provider Internal Medicine
DX: R07.9 Chest pain, unspecified (principal); R55 Syncope and collapse; I95.9 Hypotension, unspecified; I48.0 Paroxysmal atrial fibrillation; E03.9 Hypothyroidism, unspecified; Z20.822 Contact with and (suspected) exposure to COVID-19; N40.1 Benign prostatic hyperplasia with lower urinary tract symptoms; Z95.0 Presence of cardiac pacemaker; E78.2 Mixed hyperlipidemia; R61 Generalized hyperhidrosis; R06.09 Other forms of dyspnea; S00.83XA Contusion of other part of head, initial encounter; I07.1 Rheumatic tricuspid insufficiency; I27.20 Pulmonary hypertension, unspecified; K30 Functional dyspepsia; R00.1 Bradycardia, unspecified; G25.0 Essential tremor; E55.9 Vitamin D deficiency, unspecified; M47.812 Spondylosis without myelopathy or radiculopathy, cervical region; F10.90 Alcohol use, unspecified, uncomplicated; Z79.01 Long term (current) use of anticoagulants; Z79.899 Other long term (current) drug therapy; Z82.49 Family history of ischemic heart disease and other diseases of the circulatory system
CPT/HCPCS: 36415; 36600; 70450; 71046; 71275; 72125; 78452; 80053; 80069; 81003; 82024; 82533; 82607; 82746; 82805; 83690; 83735; 83880; 84439; 84443; 84480; 84484; 85025; 85380; 85610; 85730; 87637; 93005; 93017; 93306; 96361; 96374; 99285; A9270; A9502; G0378; J0834; J2785; J7030; Q9967

== ENCOUNTER 2023-02-13 00:31 | Day surgery (SDC) | payer MEDICARE, SELFPAY ==
[2023-02-12 13:40] VITALS: BMI 25.2
[2023-02-13 07:50] VITALS: BMI 25.0
[2023-02-13 07:57] LABS: Basophils Percent Auto 0.4 % (0.2-1.2); Eosinophils Absolute Auto 0.1 K/mm3 (0-0.3); Eosinophils Percent Auto 3.1 % (0-4.4); Hematocrit 47.5 % (42.0-52.0); Hemoglobin 15.8 g/dL (14.0-18.0); Immature Granulocyte Absolute 0.01 K/mm3 (0.00-0.031); Immature Granulocyte Percent A 0.2 % (0-0.5); Lymphocytes Absolute Auto 1.43 K/mm3 (0.9-3.2); Lymphocytes Percent Auto 31.4 % (18.3-44.2); Mean Corpuscular HGB Conc 33.3 g/dl (32-36); Mean Corpuscular Hemoglobin 33.5 pg (26-34); Mean Corpuscular Volume 100.6 fl (80-100); Mean Platelet Volume 9.2 fl (7.4-10.4); Monocytes Absolute Auto 0.5 K/mm3 (0.1-0.6); Monocytes Percent Auto 10.5 % (2.6-8.5); Neutrophils Absolute Auto 2.5 K/mm3 (1.3-6.7); Neutrophils Percent Auto 54.4 % (45.5-73.1); Platelet Count Result 257 k/mm3 (150-375); Red Blood Count 4.72 M/mm3 (4.6-6.20); Red Cell Distribution Width 12.3 % (11.5-14.5); White Blood Count 4.6 K/mm3 (4.5-10.0)
[2023-02-13 08:00] VITALS: BP 124/79; PULSE 65; RESP 20; TEMP 36.6; O2SAT 97
[2023-02-13 08:07] LABS: Prothrombin Time 13.5 Seconds (11.1-14.7)
[2023-02-13 08:32] LABS: Anion Gap 10 mmol/L (8-16); Blood Urea Nitrogen 17 mg/dL (9-20); Carbon Dioxide 26 mmol/L (22-30); Chloride 104 mmol/L (98-107); Estimated CRCL calculation 57 ml/min; Estimated Glomerular Filt Rate > 60; Glucose 103 mg/dL (65-110); Potassium 4.1 mmol/L (3.4-5.0); Sodium 140 mmol/L (137-145)
--- NOTE | 2023-02-13 08:39 | SUR.PREOP ---
DR. DIAZ HERE TO SEE PT. NOTIFIED THAT H&P WILL NEED UPDATED.
--- NOTE | 2023-02-13 08:45 | PM.IMHP ---
H&P: HPI History of Present Illness Date/Time: 02/13/23 08:45 Chief Complaint: Permanent pacemaker at [facility] Narrative: this is a 77-year-old patient unknown to me who has a history of sick sinus syndrome / tachy-herbert syndrome and a chronically implanted dual-chamber Medtronic pacemaker. In routine office follow-up the device is found to be at [facility]. According to the records it was implanted here at this hospital in 2013. The patient states the implant procedure was complicated by malposition of 1 of the leads any had to be treated over at [facility] for correction of this. The details of that are not mentioned in my partner's note who follows him in the office. In any event he has been doing well otherwise and according to the records he is not known to have coronary artery disease. His history also is remarkable for the development of paroxysmal atrial fib which was noticed on pacemaker follow-up more recently. For that he was systemically anticoagulated with Xarelto. In anticipation of this procedure he stopped taking the Xarelto last weekend on Thursday. He offers no complaints today and otherwise feels well. Review of Systems Constitutional: Constitutional: Reports no additional constitutional complaints Eyes: Eyes: Reports no additional eye complaints ENT: Reports system reviewed and no additional complaints, except as documented Cardiovascular: Cardiovascular: Reports no additional cardiovascular complaints Respiratory: Respiratory: Reports no additional respiratory complaints Gastrointestinal: Gastrointestinal: Reports no additional gastrointestinal complaints Musculoskeletal: Musculoskeletal: Reports no additional musculoskeletal complaints Integumentary/Breasts: Skin/Breast: Reports system reviewed and no additional complaints, except as docu Neurologic: Reports system reviewed and no additional complaints, except as documented [facility] Past Medical History Medical History Benign prostatic hyperplasia with lower urinary tract symptoms Colon cancer screening Family history of colon cancer History of sick sinus syndrome Hypothyroidism Mixed hyperlipidemia Pacemaker (~2012) Paroxysmal atrial fibrillation Vitamin D deficiency, unspecified Surgical History Surgical History Status cardiac pacemaker 2012 Family History Family History Father Hypertension Heart disease Mother Parkinson disease Sibling Cerebrovascular accident Grandparent Cancer paternal grandparent Heart disease both maternal and paternal grandparents Hypertension maternal grandparent Social History Social History (Updated 01/31/23 @ 23:52 by Aviva Pino NP) Social History: The patient had 3 children 1 passed from suicide. The patient lives at home with his . The patient is retired. Lifelong nonsmoker. Code status full code Years smoked: 2 Smoking status: Current every day smoker Tobacco type: cigarettes Second hand tobacco smoke exposure: No Alcohol intake: current Drinks per week: 7 Alcohol use details: 2 drinks per evening Substance use: never Substance use type: does not use Lack of Transportation: No Lack of Food: Never True Current Housing: I Have Housing Concerned About Future Housing: No Difficulty Paying Gas/Electric Bills: No Difficulty Paying for Meds: No Currently Unemployed: No Education: Decline to Answer Difficulty w/ Childcare or Family Care: No Living arrangements: with family Gender identity (if verbalized by the patient): Male Sexual Orientation (if Verbalized by the Patient): Straight or Heterosexual Spiritual care concerns: No Meds Home Medications and Allergies Home Medications Medication Instructions Recorded Confirmed Type ascorbic acid (vitam
--- NOTE | 2023-02-13 08:49 | WPDMODSED ---
Moderate Sedation Note-Pt Data Patient Data Diagnosis: Permanent pacemaker at [facility] Present Complaint: no complaints this more Procedure to be performed/Plan: pacemaker generator change Allergies Allergy/AdvReac Type Severity Reaction Status Date / Time shellfish derived Allergy Unknown Nausea and Verified 02/13/23 07:44 Vomiting Sulfa (Sulfonamide Allergy Unknown Rash Verified 02/13/23 07:44 Antibiotics) [id number] Reductase AdvReac Muscle Pain Verified 02/13/23 07:44 Inhibitor Home Medications Medication Instructions Recorded Confirmed Type ascorbic acid (vitamin C) 500 mg 500 mg PO DAILY 05/14/21 02/13/23 History capsule cholecalciferol (vitamin D3) 25 25 mcg PO DAILY 05/14/21 02/13/23 History mcg (1,000 unit) capsule finasteride 5 mg tablet (Proscar) 5 mg PO DAILY 07/11/21 02/13/23 History omega-3 acid ethyl esters 1 gram 2 cap PO DAILY 05/27/22 02/13/23 History capsule nitroglycerin 0.4 mg sublingual 0.4 mg sublingual Q5M PRN Chest 06/23/22 02/13/23 History tablet Pain primidone 50 mg tablet 50 mg PO QHS #90 tabs 09/25/22 02/13/23 Rx levothyroxine 25 mcg tablet 25 mcg PO DAILY 90 days #90 tabs 10/15/22 02/13/23 Rx (Synthroid) rivaroxaban 20 mg tablet (Xarelto) 20 mg PO HS 12/01/22 02/13/23 History Sedation/Anesthesia: No previous sedation/anesthesia problems (including family history). [facility] Past Medical History Medical History Benign prostatic hyperplasia with lower urinary tract symptoms Colon cancer screening Family history of colon cancer History of sick sinus syndrome Hypothyroidism Mixed hyperlipidemia Pacemaker (~2012) Paroxysmal atrial fibrillation Vitamin D deficiency, unspecified Surgical History Surgical History Status cardiac pacemaker 2012 Family History Family History Father Hypertension Heart disease Mother Parkinson disease Sibling Cerebrovascular accident Grandparent Cancer paternal grandparent Heart disease both maternal and paternal grandparents Hypertension maternal grandparent Social History Social History (Updated 01/31/23 @ 23:52 by Aviva Pino NP) Social History: The patient had 3 children 1 passed from suicide. The patient lives at home with his . The patient is retired. Lifelong nonsmoker. Code status full code Years smoked: 2 Smoking status: Current every day smoker Tobacco type: cigarettes Second hand tobacco smoke exposure: No Alcohol intake: current Drinks per week: 7 Alcohol use details: 2 drinks per evening Substance use: never Substance use type: does not use Lack of Transportation: No Lack of Food: Never True Current Housing: I Have Housing Concerned About Future Housing: No Difficulty Paying Gas/Electric Bills: No Difficulty Paying for Meds: No Currently Unemployed: No Education: Decline to Answer Difficulty w/ Childcare or Family Care: No Living arrangements: with family Gender identity (if verbalized by the patient): Male Sexual Orientation (if Verbalized by the Patient): Straight or Heterosexual Spiritual care concerns: No Mod Sed Physical Exam Physical Exam Pre Procedural Exam: Normal: Appearance, Throat, Airway, Lungs, Heart Size, Heart Rate, Heart Rhythm, Neuro Exam and Extremities Hours since solid foods: 12 Hours since liquid intake: 12 Mallampati Classification: class II Internal Medicine - PN: Obj Da Vital Signs Vital Signs: Vital Signs - 24 hr 02/13/23 08:00 Temperature 36.6 C Pulse Rate 65 Respiratory Rate 20 Blood Pressure 124/79 Pulse Oximetry 97 Oxygen Delivery Room Air Labs 02/13/23 07:45 02/13/23 07:45 Labs: Laboratory Results - last 24 hr 02/13/23 07:45 WBC 4.6 RBC 4.72 Hgb 15.8
--- NOTE | 2023-02-13 09:47 | WPDCARDPROC ---
Cardiac Cath Procedure Note Date of procedure:: 02/13/23 Performing physician:: Renny Loera MD Indication:: permanent pacemaker at [facility] Brief clinical history:: this is a 77-year-old man with a history of sick sinus syndrome/syncopal episodes and paroxysmal atrial fib. His chronically implanted pacemaker is at [facility] and he is admitted today electively as an outpatient for generator change. Procedure Procedure performed:: Explantation of depleted pacemaker pulse generator implantation of new pacemaker pulse generator Sedation/Medication given:: fentanyl 50 mg Versed 2 mg Access site:: chronically implanted pacemaker pocket in left anterior chest wall Estimated blood loss:: minimal Procedure note:: patient was brought to the cardiac catheterization lab where the left anterior chest wall was prepped and draped in the usual sterile fashion in the vicinity of a chronically implanted pacemaker device. 1% lidocaine was infiltrated above the palpable implanted generator. Following this the PlasmaBlade was used to make an incision over the pocket and the plasma blade was also used to provide cutaneous hemostasis as well as did dissect the subcutaneous tissue. The fibrous capsule around the pocket was encountered and opened with the plasma blade as well as the Metzenbaum scissors. The pacemaker device then was removed from the pocket with the attached leads and was visually unremarkable in appearance. The pacemaker device was disconnected from the chronically implanted leads using the torque wrench and the same torque wrench was used to connect the new device to the chronically implanted leads. The pocket was then irrigated with antibiotic infused saline and the new device and the chronic leads were placed back into the pocket. The device was checked using the apply for with nominal performance as detailed below. The pocket was then closed in layers using 3-0 Vicryl in interrupted fashion for the subcutaneous tissue 4-0 Vicryl in a running subcuticular fashion for the skin. The was dressed with an Aquacel dressing and the patient was then taken back to recovery area for post generator change recovery. Discharge will be later today and postop oral antibiotics were ordered for the next 48 hours. Procedure was well tolerated and uncomplicated. Findings:: The explanted device is Medtronic he pacemaker model RVDR01 serial number [id number]. originally implanted [id number] the newly implanted device is a Medtronic dual-chamber pacemaker model W1DR01. serial number [id number]. device is programmed in the AAIR //DDDR mode lower rate limit 60 upper rate limit 1-0 AV delay 180/150 milliseconds. Chronically implanted atrial lead is a Medtronic bipolar lead [id number] , serial [id number] [id number]. originally implanted 11/02/2012 in the RA appendage P waves are sensed at 3.3 mV impedance 399 Ohms threshold 0.5 volt at 0.4 millisecond. Chronically implanted ventricular lead is a Medtronic bipolar lead model [id number]. serial number [id number]. originally implanted 11/02/2012 in right ventricle. R-waves are sensed at 2.8 mV impedance 437 Ohms threshold 0.75 volts at 0.4 millisecond. Conclusion:: 1. Successful uncomplicated explantation of depleted dual-chamber pulse generator 2. successful uncomplicated implantation of new dual-chamber Medtronic pulse generator for ongoing treatment of sick sinus syndrome and tachy-herbert syndrome in this 77-year-old gentleman 3. R-wave sensing is low as detailed above at 2.8 mV this however is a chronic finding in this chronically implanted lead. Renny Loera MD [facility]
[2023-02-13 10:00] VITALS: BP 111/66; PULSE 60; RESP 16; TEMP 36.2; O2SAT 94
[2023-02-13 10:15] VITALS: BP 105/72; PULSE 60; RESP 14; O2SAT 98
[2023-02-13 10:30] VITALS: BP 106/76; PULSE 60; RESP 14; O2SAT 98
[2023-02-13 10:45] VITALS: BP 116/78; PULSE 60; RESP 16; O2SAT 100
[2023-02-13 11:00] VITALS: BP 117/72; PULSE 60; RESP 16; O2SAT 100
== END 2023-02-13 11:30 | disposition home or self-care (01) ==
PROVIDERS: PCP Family Medicine; Visit Provider Specialist
PROC: 0JPT0PZ Removal of Cardiac Rhythm Related Device from Trunk Subcutaneous Tissue and Fascia, Open Approach (ICD-10-PCS; CPT 33228; principal; 2023-02-13 09:00)
DX: Z45.010 Encounter for checking and testing of cardiac pacemaker pulse generator [battery] (principal); I48.0 Paroxysmal atrial fibrillation; E78.2 Mixed hyperlipidemia; N40.0 Benign prostatic hyperplasia without lower urinary tract symptoms; E03.9 Hypothyroidism, unspecified; E55.9 Vitamin D deficiency, unspecified; Z79.01 Long term (current) use of anticoagulants; F17.210 Nicotine dependence, cigarettes, uncomplicated
CPT/HCPCS: 33228; 36415; 80048; 85025; 85610; C1785; J0690; J2250; J3010; J7040

== ENCOUNTER 2023-04-15 11:07 | Outpatient (CLI) | payer MEDICARE, SELFPAY ==
--- NOTE | ~2023-04-15 | XR_ITS ---
EXAMINATION: XR tibia fibula RT 2V INDICATION: Right leg pain TECHNIQUE: Two views of the right tibia and fibula are obtained. COMPARISON: 08/05/2018 FINDINGS: No fracture, dislocation, or subluxation. The bones, soft tissues, and joint spaces are nor mal. IMPRESSION: 1. No acute osseous abnormality. Reviewed, dictated and finalized at location B.
--- NOTE | ~2023-04-15 | US_ITS ---
EXAMINATION: US venous doppler LE RT DATE: 04/15/2023 11:38 INDICATION: Right lower limb pain and swelling TECHNIQUE: Frazier scale images without and with compression and Doppler images of the right lower extre mity veins were obtained. COMPARISON: None FINDINGS: The right common femoral vein, profunda femoral vein, femoral vein, popliteal vein, peronea l trunk, posterior tibial veins, and greater saphenous vein are patent. IMPRESSION: 1. Patent right lower extremity veins. No evidence of deep venous thrombosis. Reviewed, dictated and finalized at location B.
== END 2023-04-15 11:08 | disposition home or self-care (01) ==
PROVIDERS: PCP Family Medicine; Visit Provider Family Medicine
DX: M79.89 Other specified soft tissue disorders (principal)
CPT/HCPCS: 73590; 93971

== ENCOUNTER 2023-06-03 08:52 | Outpatient (CLI) | payer MEDICARE, SELFPAY ==
[2023-06-03 19:40] LABS: Basophils Percent Auto 0.7 % (0.2-1.2); Eosinophils Absolute Auto 0.1 K/mm3 (0-0.3); Eosinophils Percent Auto 2.9 % (0-4.4); Hemoglobin 14.8 g/dL (14.0-18.0); Immature Granulocyte Absolute 0.01 K/mm3 (0.00-0.031); Immature Granulocyte Percent A 0.2 % (0-0.5); Lymphocytes Percent Auto 26.7 % (18.3-44.2); Mean Corpuscular HGB Conc 32.2 g/dl (32-36); Mean Corpuscular Hemoglobin 32.3 pg (26-34); Mean Corpuscular Volume 100.4 fl (80-100); Mean Platelet Volume 9.5 fl (7.4-10.4); Monocytes Absolute Auto 0.5 K/mm3 (0.1-0.6); Monocytes Percent Auto 10.4 % (2.6-8.5); Neutrophils Absolute Auto 2.7 K/mm3 (1.3-6.7); Neutrophils Percent Auto 59.1 % (45.5-73.1); Platelet Count Result 237 k/mm3 (150-375); Red Blood Count 4.58 M/mm3 (4.6-6.20); Red Cell Distribution Width 12.8 % (11.5-14.5); White Blood Count 4.5 K/mm3 (4.5-10.0)
[2023-06-03 20:08] LABS: Alanine Aminotransferase 25 U/L (6-50); Albumin Level 4.3 g/dL (3.5-5.1); Alkaline Phosphatase 48 U/L (38-126); Anion Gap 3 mmol/L (8-16); Aspartate Amino Transferase 40 U/L (17-59); Bilirubin,Total 0.6 mg/dL (0.2-1.3); Blood Urea Nitrogen 15 mg/dL (9-20); Carbon Dioxide 32 mmol/L (22-30); Chloride 101 mmol/L (98-107); Cholesterol 207 mg/dL (0-200); Estimated Glomerular Filt Rate > 60; Glucose 89 mg/dL (65-110); HDL Direct 54 mg/dL; Potassium 4.2 mmol/L (3.4-5.0); Sodium 136 mmol/L (137-145); Triglycerides 95 mg/dL (<150)
[2023-06-03 20:19] LABS: LDL Cholesterol Direct 109 mg/dL
[2023-06-03 20:30] LABS: Vitamin D 25 Hydroxy 35.4 ng/mL
== END 2023-06-03 08:53 | disposition home or self-care (01) ==
LOC: ANHGOSHLAB 08:53
PROVIDERS: PCP Family Medicine; Visit Provider Family Medicine
DX: E78.5 Hyperlipidemia, unspecified (principal); E53.8 Deficiency of other specified B group vitamins; I10 Essential (primary) hypertension; E55.9 Vitamin D deficiency, unspecified; I48.0 Paroxysmal atrial fibrillation; E03.9 Hypothyroidism, unspecified
CPT/HCPCS: 36415; 80053; 80061; 82306; 82607; 84443; 85025

== ENCOUNTER 2023-11-21 16:33 | Emergency (ER) | payer MEDICARE, SELFPAY ==
[2023-11-21 17:10] VITALS: BP 116/80; PULSE 77; RESP 16; TEMP 36.6; O2SAT 97
[2023-11-21 17:12] VITALS: BP 116/80; PULSE 77; RESP 16; TEMP 36.6; O2SAT 97
--- NOTE | 2023-11-21 17:32 | ED.GENADULT ---
HPI - General Adult General Chief complaint: Wound/Laceration Stated complaint: Cut Finger Time Seen by Provider: 11/21/23 17:33 Source: patient Mode of arrival: ambulatory Limitations: no limitations History of Present Illness HPI narrative: 7-year-old male patient presents to the [facility] with complaints of a laceration to left hand. Patient states he was sawing some metal today and slipped away cut his hand. Patient states he has had a tetanus shot within the last 5 years. Patient states he is on blood thinner so he was having trouble with the bleeding to stop but is currently under control at this time. Related Data Home Medications Medication Instructions Recorded Confirmed ascorbic acid (vitamin C) 500 mg 500 mg PO DAILY 05/14/21 11/21/23 capsule finasteride 5 mg tablet (Proscar) 5 mg PO DAILY 07/11/21 11/21/23 omega-3 acid ethyl esters 1 gram 2 cap PO DAILY 05/27/22 11/21/23 capsule nitroglycerin 0.4 mg sublingual 0.4 mg sublingual Q5M PRN Chest 06/23/22 11/21/23 tablet Pain rivaroxaban 20 mg tablet (Xarelto) 20 mg PO HS 12/01/22 11/21/23 metoprolol tartrate 25 mg tablet 25 mg PO BID 04/15/23 11/21/23 Allergies Allergy/AdvReac Type Severity Reaction Status Date / Time shellfish derived Allergy Unknown Nausea and Verified 11/21/23 17:11 Vomiting Sulfa (Sulfonamide Allergy Unknown Rash Verified 11/21/23 17:11 Antibiotics) Afijqky-MXT-TaI Reductase AdvReac Muscle Pain Verified 11/21/23 17:11 Inhibitor Review of Systems Review of Systems: CONSTITUTIONAL: Denies fever, chills, or sweats. EYES: Denies visual changes, redness, or discharge. ENT: Denies rhinorrhea, congestion, sore throat, or otalgia. CARDIOVASCULAR: Denies chest pain, palpitations, or edema. RESPIRATORY: Denies cough or dyspnea. GASTROINTESTINAL: Denies abdominal pain, nausea, vomiting, or diarrhea. GENITOURINARY: Denies dysuria or hematuria. SKIN: Denies rash or itching. positive laceration to left hand MUSCULOSKELETAL: Denies back pain, joint pain, or myalgia. NEUROLOGIC: Denies headache, numbness, or weakness. PSYCHIATRIC: Denies anxiety or depression. [facility] Past Medical History Medical History Benign prostatic hyperplasia with lower urinary tract symptoms Colon cancer screening Family history of colon cancer History of sick sinus syndrome Hypothyroidism Mixed hyperlipidemia Pacemaker (~2012) Paroxysmal atrial fibrillation Vitamin D deficiency, unspecified Surgical History Surgical History Status cardiac pacemaker (~01/2023) 2012, 02/13/23 replaced generator Family History Family History Father Hypertension Heart disease Mother Parkinson disease Sibling Cerebrovascular accident Grandparent Cancer paternal grandparent Heart disease both maternal and paternal grandparents Hypertension maternal grandparent Social History Social History Social History: The patient had 3 children 1 passed from suicide. The patient lives at home with his . The patient is retired. Lifelong nonsmoker. Code status full code Caffeine- coffee Years smoked: 2 Smoking status: Former smoker (smoked for a year in 70s) Tobacco type: cigarettes Second hand tobacco smoke exposure: No Alcohol intake: current Drinks per week: 14 Alcohol use details: 2 drinks per evening Substance use: never Substance use type: does not use Lack of Transportation: No Lack of Food: Never True Current Housing: I Have Housing Concerned About Future Housing: No Difficulty Paying Gas/Electric Bills: No Difficulty Paying for Meds: No Currently Unemployed: No Education: Decline to Answer Difficulty w/ Childcare or Family Care: No Living arrangements: with family
== END 2023-11-21 17:51 | disposition home or self-care (01) ==
PROVIDERS: Emergency Provider Nurse Practitioner Family; PCP Family Medicine
DX: S61.412A Laceration without foreign body of left hand, initial encounter (principal); W27.0XXA Contact with workbench tool, initial encounter; Z87.891 Personal history of nicotine dependence; N40.1 Benign prostatic hyperplasia with lower urinary tract symptoms; E03.9 Hypothyroidism, unspecified; E78.2 Mixed hyperlipidemia; I48.0 Paroxysmal atrial fibrillation; Z95.0 Presence of cardiac pacemaker; Z79.01 Long term (current) use of anticoagulants
CPT/HCPCS: 12001; 99213; G0463

== ENCOUNTER 2023-12-29 10:48 | Outpatient (CLI) | payer MEDICARE, SELFPAY ==
[2023-12-29 13:28] LABS: Basophils Percent Auto 0.9 % (0.2-1.2); Eosinophils Absolute Auto 0.2 K/mm3 (0-0.3); Eosinophils Percent Auto 4.8 % (0-4.4); Hematocrit 45.9 % (42.0-52.0); Hemoglobin 15.1 g/dL (14.0-18.0); Immature Granulocyte Absolute 0.01 K/mm3 (0.00-0.031); Immature Granulocyte Percent A 0.2 % (0-0.5); Lymphocytes Absolute Auto 1.67 K/mm3 (0.9-3.2); Lymphocytes Percent Auto 37.9 % (18.3-44.2); Mean Corpuscular HGB Conc 32.9 g/dl (32-36); Mean Corpuscular Hemoglobin 32.8 pg (26-34); Mean Corpuscular Volume 99.6 fl (80-100); Mean Platelet Volume 9.5 fl (7.4-10.4); Monocytes Absolute Auto 0.4 K/mm3 (0.1-0.6); Monocytes Percent Auto 9.1 % (2.6-8.5); Neutrophils Absolute Auto 2.1 K/mm3 (1.3-6.7); Neutrophils Percent Auto 47.1 % (45.5-73.1); Platelet Count Result 236 k/mm3 (150-375); Red Blood Count 4.61 M/mm3 (4.6-6.20); White Blood Count 4.4 K/mm3 (4.5-10.0)
[2023-12-29 13:37] LABS: Alanine Aminotransferase 20 U/L (6-50); Albumin Level 4.2 g/dL (3.5-5.1); Alkaline Phosphatase 55 U/L (38-126); Anion Gap 6 mmol/L (4-12); Aspartate Amino Transferase 52 U/L (17-59); Bilirubin,Total 0.7 mg/dL (0.2-1.3); Blood Urea Nitrogen 20 mg/dL (9-20); Calcium 8.9 mg/dL (8.4-10.2); Carbon Dioxide 25 mmol/L (22-30); Chloride 109 mmol/L (98-107); Cholesterol 179 mg/dL (0-200); Estimated Glomerular Filt Rate > 60; Glucose 91 mg/dL (65-110); HDL Direct 48 mg/dL; Potassium 3.9 mmol/L (3.4-5.0); Sodium 140 mmol/L (137-145); Triglycerides 85 mg/dL (<150)
[2023-12-29 13:47] LABS: LDL Cholesterol Direct 101 mg/dL
[2023-12-29 13:49] LABS: Hemoglobin A1C 5.7 % (<5.7)
== END 2023-12-29 10:49 | disposition home or self-care (01) ==
PROVIDERS: PCP Family Medicine; Visit Provider Nurse Practitioner Family
DX: E78.2 Mixed hyperlipidemia (principal); E03.9 Hypothyroidism, unspecified; G25.0 Essential tremor; N40.1 Benign prostatic hyperplasia with lower urinary tract symptoms; R73.03 Prediabetes; Z13.29 Encounter for screening for other suspected endocrine disorder
CPT/HCPCS: 36415; 80053; 80061; 83036; 84443; 85025

== ENCOUNTER 2023-12-30 08:24 | Outpatient (CLI) | payer MEDICARE, SELFPAY | END 2023-12-30 08:25 | disposition home or self-care (01) | LOC: ANHAUDASC 08:25 | PROVIDERS: PCP Family Medicine; Visit Provider Nurse Practitioner Family | DX: H90.3 Sensorineural hearing loss, bilateral (principal); H93.13 Tinnitus, bilateral | CPT/HCPCS: 92557; 92567 ==

== ENCOUNTER 2024-06-29 09:54 | Outpatient (CLI) | payer MEDICARE, SELFPAY ==
[2024-06-29 12:43] LABS: Basophils Percent Auto 0.8 % (0.2-1.2); Eosinophils Absolute Auto 0.2 K/mm3 (0-0.3); Hemoglobin 15.5 g/dL (14.0-18.0); Immature Granulocyte Absolute 0.01 K/mm3 (0.00-0.031); Immature Granulocyte Percent A 0.2 % (0-0.5); Lymphocytes Absolute Auto 1.76 K/mm3 (0.9-3.2); Lymphocytes Percent Auto 36.7 % (18.3-44.2); Mean Corpuscular Hemoglobin 32.5 pg (26-34); Mean Corpuscular Volume 98.5 fl (80-100); Mean Platelet Volume 9.4 fl (7.4-10.4); Monocytes Absolute Auto 0.5 K/mm3 (0.1-0.6); Monocytes Percent Auto 9.6 % (2.6-8.5); Neutrophils Absolute Auto 2.3 K/mm3 (1.3-6.7); Neutrophils Percent Auto 48.7 % (45.5-73.1); Platelet Count Result 239 k/mm3 (150-375); Red Blood Count 4.77 M/mm3 (4.6-6.20); Red Cell Distribution Width 12.3 % (11.5-14.5); White Blood Count 4.8 K/mm3 (4.5-10.0)
[2024-06-29 13:16] LABS: Vitamin D 25 Hydroxy 61.2 ng/mL
[2024-06-29 13:21] LABS: LDL Cholesterol Direct 90 mg/dL
[2024-06-29 13:22] LABS: Alanine Aminotransferase 23 U/L (6-50); Albumin Level 4.4 g/dL (3.5-5.1); Alkaline Phosphatase 56 U/L (38-126); Anion Gap 6 mmol/L (4-12); Aspartate Amino Transferase 50 U/L (17-59); Bilirubin,Total 0.7 mg/dL (0.2-1.3); Blood Urea Nitrogen 20 mg/dL (9-20); Calcium 8.9 mg/dL (8.4-10.2); Carbon Dioxide 27 mmol/L (22-30); Chloride 106 mmol/L (98-107); Cholesterol 176 mg/dL (0-200); Estimated Glomerular Filt Rate > 60; Glucose 90 mg/dL (65-110); HDL Direct 43 mg/dL; Potassium 4.4 mmol/L (3.4-5.0); Sodium 139 mmol/L (137-145); Triglycerides 96 mg/dL (<150)
== END 2024-06-29 09:55 | disposition home or self-care (01) ==
PROVIDERS: PCP Family Medicine; Visit Provider Family Medicine
DX: E78.5 Hyperlipidemia, unspecified (principal); E03.9 Hypothyroidism, unspecified; R73.03 Prediabetes; I10 Essential (primary) hypertension; E53.8 Deficiency of other specified B group vitamins; E55.9 Vitamin D deficiency, unspecified
CPT/HCPCS: 36415; 80053; 80061; 82306; 82607; 83036; 84443; 85025

== ENCOUNTER 2025-02-03 08:14 | Outpatient (CLI) | payer MEDICARE, SELFPAY ==
--- OUTSIDE RECORDS SUMMARY | 2025-02-03 08:18 | XMS_ITS | Continuity of Care Document ---
Author Name [facility] Organization [facility] Care Team Providers Care Dairy Frozen Manager Name Role Phone [facility] Unavailable Unavailable Encounters Combined list of: 1) Encounters from Department of Veterans Affairs facilities going backup to the last 18 months, not all [facility] inpatient encounters are included; 2) Encounters from the Department of Defense facilities going backup to 280 months. Location Location Details Encounter Type Encounter Number Reason For Visit Attending Provider ADM Date DC Date Status Disposition Source [facility] Outpatient Encounter [id number] 7 [facility]
--- OUTSIDE RECORDS SUMMARY | 2025-02-03 08:18 | XMS_ITS | Encounter Summary ---
Author Organization [facility] Address [address] [place] [address] Phone Care Team Providers Care Hand Gluer And Slicer Name Role Phone Jamal Del Rio MD Primary Care Provider Eric Mccarthy MD Unavailable [phone] Reason for Visit * Reason Comments Medication Refill Encounter Details Date Type Department Care Team (Late st Contact Info) Description 08/26/2023 Refill [facility] - [facility] [address] [place] [id number] Eric Mccarthy MD [address] [place] [id number] Medication Refill Social History Tobacco Use Types Packs/Day Years Used Date Smoking Tobacco: Former Smokeless Tobacco: Never Alcohol Use Standard Drinks/Week Comments Yes 0 (1 standard drink = 0.6 oz pur e alcohol) Sex and Gender Information Value Date Recorded Sex Assigned at Not on file Legal Sex Male 10:27 PM CDT Gender Identity Not on file Sexual Orientation Not on file documented as of this encounter Miscellaneous Notes * Telephone Encounter - Lalitha Garcia RN - 08/27/2023 9:08 AM CST Medication failed the protocol, provider to review and approve the medication order if appropriate. Requested Prescriptions Pending Prescriptions Disp Refills Topiramate 50 MG Tablet [Pharmacy Med Name: TOPIRAMATE 50 MG TABLET] 270 Tablet Sig: Take 1 Tablet by mouth every morning AND 2 Tablets nightly. Not Delegated - Anticonvulsants Excluding Benzodiazepines Protocol Failed - 08/26/2023 10:16 PM Failed - This refill cannot be delegated Passed - Visit with relevant provider in past 12 months or upcoming 90 days Recent Visits Date Type Provider Dept 06/22/23 Office Visit Eric Mccarthy MD [facility] Neurology [facility] Showing recent visits within past 365 days and meeting all other requirements Future Appointments Date Type Provider Dept 09/29/23 Appointment Eric Mccarthy MD [facility] Neu[facility] [place] [facility] Showing future appointments within next 90 days and meeting all other requirements MENT SHAPER documented in this encounter Plan of Treatment Upcoming Encounters Date Type Department Care Team (Late st Contact Info) Description 01/15/2026 11:00 AM CDT [facility] [address] [place] [address] Eric Mccarthy MD [address] [place] [address] documented as of this encounter Visit Diagnoses Not on filedocumented in this encounter Care Teams Hand Gluer And Slicer Relationship Specialty Start Date End Date Jamal Del Rio MD PCP - General Family Medicine 01/13/22 Eric Mccarthy MD [address] [place] [address] Consulting Physician Neurology 01/13/22 documented as of this encounter
--- OUTSIDE RECORDS SUMMARY | 2025-02-03 08:18 | XMS_ITS | Clinical Summary ---
Author Organization [facility] [address] Address [address] [place] [address] Care Team Providers Care Commodity Director Name Role Phone Jamal Del Rio MD Primary Care Provider Allergies Active Allergy Reactions Criticality Noted Date Comments Shellfish Containing Products Other (See comments) Low Reaction: ABDOMINAL PAIN Dsxncmr-Gym-Tng Reductase Inhibitors Muscle pain Medium 01/18/2021 Intolerant to several statins except Livalo. Sulfa (Sulfonamide Antibiotics) Other (See comments) High Reaction: ERYTHEMA, , Medications omega-3 fatty acids (LOVAZA) 1 gram capsule take 2 capsule (2G) by oral route every day 0 10/27/19 13 Active levothyroxine (SYNTHROID) 25 mcg tablet take 1 tablet (25MCG) by oral route every day 0 10/27/19 13 Active cholecalciferol (cholecalciferol) 1,000 unit tablet take 1 by Oral route every day 0 10/27/19 13 Active nitroglycerin (NITROSTAT) 0.[address] ONE TABLET SUBLINGUALLY EVERY 5 MIN X3 DOSES NEEDED FOR CHEST PAIN. IF NO RELIEF CALL 911 3 12/20/19 17 Active topiramate (TOPAMAX) 50 mg tablet Take by mouth 08/27/19 24 Active cholecalciferol (VITAMIN D-3) 1,000 unit Take 1 tablet/capsule (1,000 Units total) by mouth daily Active metoprolol tartrate (LOPRESSOR) 25 mg immediate release tabletIndications:Pa roxysmal supraventricular tachycardia TAKE 1 TABLET BY MOUTH TWICE A DAY 180 tablet 3 07/25/20 24 Active Xarelto 20 mg tablet TAKE 1 TABLET BY MOUTH EVERY DAY AT NIGHT 30 tablet 11 08/30/19 25 Active ascorbic acid 500 mg tablet,chewable Take 1 tablet/chew tab (500 mg total) by mouth daily after breakfast Active Active Problems Problem Noted Date Diagnosed Date Chronic anticoagulation 10/20/2023 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 DOI 02/13/2023-Luz Maria. Chronic leads 11/02/2012. Carter. Carelink remote monitoring Q3 mo, office pacer checks Q1 yr. Benign hypertension 07/16/2015 Overview (10/31/2016): HTN (hypertension), benign Nonsustained ventricular tachycardia 07/16/2015 Overview (10/31/2016): NSVT (nonsustained ventricular tachycardia) Sick sinus syndrome 07/16/2015 Overview (10/31/2016): Sick sinus syndrome Paroxysmal supraventricular tachycardia 02/16/20 14 Overview (10/31/2016): Paroxysmal SVT (supraventricular tachycardia) Palpitations 02/15/2014 Overview (10/31/2016): Palpitations Resolved Problems Problem Noted Date Diagnosed Date Resolved Date Dyslipidemia 07/16/2015 11/25/2021 Overview (10/31/2016): Dyslipidemia Encounters Date Type Department Care Team Description 01/17/2025 10:00 AM CDT Office Visit [facility] Cardiology [address] [place] [address] Aden Combs MD Paroxysmal atrial fibrillation (HCC) (Primary Dx); Nonsustained ventricular tachycardia (HCC); Paroxysmal supraventricular tachycardia (CMS/HCC); Pacemaker; Chronic anticoagulation 12/29/2024 8:00 AM CDT Ancillary Procedure [facility] [address] [facility] [address], [place] [address] Sick sinus syndrome (HCC); Paroxysmal atrial fibrillation (HCC) from Last 3 Months Surgical History Surgery Date Site/Laterality Comments CARDIAC PACEMAKER PLACEMENT Cardiac pacemaker Medical History Medical History Date Comments Hypothyroidism Hypothyroidism Hypertension Hypertension Hx Other Medical Arrhythmias sic k sinus syndrome, chronotropic inco Hx Other Medical right ventricul ar lead perforation Family History Medical History Relation Name Comments Heart disease Father Adan Nunezefeld Heart failure Father Adan Nunezefobdulia Congestive Heart Failure; Cause of : Congestive Heart Failure Hypertension Father Adan Frederick Memory loss Mother Phyllis Frederick Parkinsonism Mother Phyllis Frederick Parkinson 's Disease; Cause of : Parkinson's Disease Relation Name Status Comments Father Adan Frederick (Age 84) Mother Phyllis Frederick (Age 80) Social History Tobacco Use Types Packs/Day Years Used Date Smoking Tobacco: Former Cigarettes 0 04/18/1979 - 02/04/1980 Pipe Smokeless Tobacco: Never Comments:Very short time Alcohol Use Standard Drinks/Week Comments Yes 0 (1 standard drink = 0.6 oz pur e alcohol) Sex and Gender Information Value Date Recorded Sex Assigned at Not on file Legal Sex Male 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 Gender Identity Not on file Sexual Orientation Not on file Obstetrics History Last Filed Vital Signs Vital Sign Reading Time Taken Comments Blood Pressure 104/70 01/17/2025 10:14 AM CDT Pulse 81 01/17/2025 10:14 AM CDT Temperature 36.4 C (97.5 F) 02/20/2020 2:03 PM CDT Respiratory Rate 16 01/08/2017 11:06 AM CDT Oxygen Saturation 96% 01/17/2025 10:14 AM CDT Inhaled Oxygen Concentration - - Weight 78.5 kg (173 lb) 01/17/2025 10:14 AM CDT Height 177.8 cm (5' 10) 01/17/2025 10:14 AM CDT Body Mass Index 24.82 01/17/2025 10:14 AM CDT Plan of Treatment Health Maintenance Due Date Last Done Comments Depression Screening 1945 Fall Risk Assessment 1945 Hepatitis C Screening 1945 DTaP/Tdap/Td Vaccine (1 - Tdap) 1957 Hepatitis B Screening 1964 Pneumococcal vaccine 65+ (1 of 1 - PCV) 1996 Zoster Vaccine (1 of 2) 1996 Abdominal Aortic Aneurysm (AAA) Screen 12/24/2011 Well Visit 65+ 12/24/2011 Influenza Vaccine (#1) 2025 08/05/2018 Medical Devices Implanted Type Area Buttoner Device Identifier Shelf Expiration Date Model / Serial / Lot Pacemaker- [id number] Implanted:11/02 by Irena Tapia MD (Quantity not on file) Pacemaker Chest Medtronic SSS REVO MRI / [id number] / Insurance AETNA MEDICARE GOLD AETNA MEDICARE GOLD AET MEDICARE GOLD Care Teams Commodity Director Relationship Specialty Start Date End Date Jamal Del Rio MD PCP - General Family Practice 01/11/21
--- OUTSIDE RECORDS SUMMARY | 2025-02-03 08:18 | XMS_ITS | Encounter Summary ---
Author Organization [facility] Address [address] [place] [address] Phone Care Team Providers Care Air Drier Name Role Phone Jamal Del Rio MD Primary Care Provider Eric Mccarthy MD Unavailable [phone] Reason for Visit * Reason Comments Medication Refill Encounter Details Date Type Department Care Team ([facility] st Contact Info) Description 04/10/2024 Refill [facility] - Neurology [facility] [address] [place] [address] Eric Mccarthy MD [address] [place] [id number] Medication Refill Social History Tobacco Use Types [...] encounter Miscellaneous Notes * Telephone Encounter - Mercedes Rees RN - 04/11/2024 9:58 AM CDT Medication failed the protocol, provider to review and approve the medication order if appropriate. Requested Prescriptions Pending Prescriptions Disp Refills Topiramate 50 MG Tablet [Pharmacy Med Name: TOPIRAMATE 50 MG TABLET] 270 Tablet 1 Sig: TAKE 1 TABLET BY MOUTH EVERY MORNING AND 2 TABLETS NIGHTLY. Not Delegated - Anticonvulsants Excluding Benzodiazepines Protocol Failed - 04/10/2024 7:10 AM Failed - This refill cannot be delegated Passed - Visit with relevant provider in past 12 months or upcoming 90 days Recent Visits Date Type Provider Dept 09/29/23 Office Visit Eric Mccarthy MD [facility] 06/22/23 Office Visit Eric cMcarthy MD [facility] Neurology [facility] Showing recent visits within past 365 days and meeting all other requirements Today's Visits Date Type Provider Dept 04/11/24 Appointment Eric Mccarthy MD [facility] Neurology [facility] Showing today's visits and meeting all other requirements Future Appointments No visits were found meeting these conditions. Showing future appointments within next 90 days and meeting all other requirements documented in this encounter Plan of Treatment Upcoming Encounters Date Type Department Care Team (Late st Contact Info) Description 01/15/2026 11:00 AM CDT Office Visit [facility] - Neurology [facility] [address] [place] [address] Eric Mccarthy MD [address] [place] [address] documented as of this encounter Visit Diagnoses Not on filedocumented in this encounter Care Teams Air Drier Relationship Specialty Start Date End Date Jamal Del Rio MD PCP - General Family Medicine 01/13/22 Eric Mccarthy MD [address] [place] [address] Consulting Physician Neurology 01/13/22 documented as of this encounter
--- OUTSIDE RECORDS SUMMARY | 2025-02-03 08:18 | XMS_ITS | Encounter Summary ---
Author Organization [facility] Address [address] [facility] [address] [place] [address] Care Team Providers Care Life Guard Name Role Phone Patel Young MD, Oscar A. Primary Care Provider Patel Young MD, Oscar A. 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 Historical Provider [facility] Final Result documented in this encounter Visit Diagnoses Not on filedocumented in this encounter Care Teams Life Guard Relationship Specialty Start Date End Date Levi Sweeney Jr., MD [address] [place] [address] PCP - General 10/24/16 01/10/21 Levi Sweeney Jr., MD [address] [place] [address] PCP - General 02/15/14 10/23/16 Jamal Del Rio MD [address] [place] [address] PCP - General Family Practice 01/11/21 documented as of this encounter
--- OUTSIDE RECORDS SUMMARY | 2025-02-03 08:18 | XMS_ITS | Encounter Summary ---
Author Organization [facility] Address [address] [facility] [address] [place] [address] Care Team Providers Care Supervisor Contact Lens Name Role Phone Patel Young MD, Levi Walton Primary Care Provider Jamal Del Rio MD Primary Care Provider Encounter Details Date Type Department Care Team (Late st Contact Info) Description 12/19/2016 Orders Only [facility] ProviderLennox MD [address] [place] [address] Social History Tobacco Use Types Packs/Day Years Used Date Smoking Tobacco: Former Alcohol Use Standard Drinks/Week Comments Yes 0 (1 standard drink = 0.6 oz pur e alcohol) Sex and Gender Information Value Date Recorded Sex Assigned at Not on file 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 Historical Provider [facility] Final Result documented in this encounter Visit Diagnoses Not on filedocumented in this encounter Care Teams Supervisor Contact Lens Relationship Specialty Start Date End Date Levi Sweeney Jr., MD [address] [place] [address] PCP - General 10/24/16 01/10/21 Jamal Del Rio MD [address] [place] [address] PCP - General Family Practice 01/11/21 documented as of this encounter
--- OUTSIDE RECORDS SUMMARY | 2025-02-03 08:18 | XMS_ITS | Clinical Summary ---
Author Organization [facility] Address [address] [place] [address] Care Team Providers Care Agriculture Laboratory Technician Name Role Phone Unavailable Primary Care Provider Unavailabl e Source Comments [facility],non-owned Affiliates and Associated Physician Practices is amultiple site organization consisting of ambulatory clinics and hospital sitesin [place], [place], [place] and [place]. This disclosure is being madepursuant to the Care Everywhere program and may not contain all information available regarding this patient. Last updated 18.[employer] Social History Tobacco Use Types Packs/Day Years Used Date Smoking Tobacco: Never Assessed Sex and Gender Information Value Date Recorded Sex Assigned at Not on file Legal Sex Male 4:24 PM CDT Gender Identity Not on file Sexual Orientation Not on file Plan of Treatment Health Maintenance Due Date Last Done Comments HEPATITIS C SCREENING [birth year]/18/1963 DTAP/TDAP/TD VACCINES (1 - Tdap) 1965 PNEUMOCOCCAL VACCINE 50+ (1 of 1 - PCV) 1996 ZOSTER VACCINE (1 of 2) 1996 Respiratory Syncytial Virus (RSV) Vaccine Pt: or over 60 yrs (1 - 1-dose 75+ series) 2021 COVID-19 VACCINE ( - 2023-2 5 season) 2024 DEPRESSION SCREENING 07/27/2024 INFLUENZA VACCINE (#1) 2025 HEPATITIS B VACCINE Aged Out No longe r eligible based on patient's age to complete this topic HIB VACCINE Aged Out No longer eligi ble based on patient's age to complete this topic HPV VACCINE Aged Out No longer eligi ble based on patient's age to complete this topic MENINGOCOCCAL (Group B) VACC INE SHARED DECISION-MAKING Aged Out No longer eligibl e based on patient's age to complete this topic MENINGOCOCCAL GROUPS A/C/Y/W VACCINE Aged Out No longer eligible b ased on patient's age to complete this topic Insurance AETNA
--- OUTSIDE RECORDS SUMMARY | 2025-02-03 08:18 | XMS_ITS | Clinical Summary ---
Author Organization [facility] Address [address] [place] [address] Care Team Providers Care Dielectric Machine Operator Name Role Phone Unavailable Primary Care Provider Unavailabl e Social History Tobacco Use Types Packs/Day Years Used Date Smoking Tobacco: Never Assessed Sex and Gender Information Value Date Recorded Sex Assigned at Not on file Legal Sex Male 7:14 PM CDT Gender Identity Not on file Sexual Orientation Not on file Plan of Treatment Health Maintenance Due Date Last Done Comments Hepatitis C 1963 DTaP, Tdap and Td Vaccines ( 1 - Tdap) 1965 Pneumococcal Vaccine: 50+ Ye ars (1 of 1 - PCV) 1996 Zoster Vaccines (1 of 2) 1996 RSV Immunization or 60+ Years (1 - 1-dose 75+ series) 2021 COVID-19 Vaccine ( - 2023-2 5 season) 2024 Meningococcal B Vaccine Aged Out No l onger eligible based on patient's age to complete this topic Meningococcal Vaccine Aged Out No monika irma eligible based on patient's age to complete this topic RSV Immunizations Under 20 Months Aged Out No longer eligible based on patient's age to complete this topic
--- OUTSIDE RECORDS SUMMARY | 2025-02-03 08:18 | XMS_ITS | Clinical Summary ---
Author Organization [facility] Address [address] [place] [address] Phone Care Team Providers Care Black Off Worker Name Role Phone Jamal Del Rio MD Primary Care Provider Eric Mccarthy MD Unavailable [phone] Allergies Active Allergy Reactions Criticality Noted Date Comments Shellfish Allergy Unknown 11/28/2021 Statins Other (see Comments) 03/17/2022 Muscle aches Sulfa Antibiotics Rash 03/17/2022 Medications [place]-3 Fatty Acids (OMEGA-3 FISH OIL PO) Take by mouth. Ac tive ascorbic acid 500 MG Tablet Take 500 mg by mouth daily. Active Vitamin D3 1000 UNIT Tablet Take 25 mcg by mouth daily. Active metoprolol tartrate (LOPRESSOR) 25 MG Tablet Take 50 mg by mouth 2 times daily. Active levothyroxine (SYNTHROID) 25 MCG Tablet Take 25 mcg by mouth daily. Active nitroGLYCERIN (NITROSTAT) 0.6 MG SL Tablet 0.6 mg by Sublingual route every 5 minutes as needed. Active rivaroxaban (Xarelto) 20 MG Tablet Take 20 mg by mouth daily (with dinner). Take with food. Active Topiramate 50 MG Tablet TAKE 1 TABLET BY MOUTH EVERY MORNING AND 2 TABLETS NIGHTLY. 270 Tablet 1 Active Encounters Date Type Department Care Team Description 01/16/2025 11:00 AM CDT Office Visit [facility] [address] [place] [address] Eric Mccarthy MD Essential tremor (Primary Dx); Atrial fibrillation, unspecified type (HCC); Fatigue, unspecified type Discharge Disposition: Discharged to home or Selfcare 01/16/2025 Travel from Last 3 Months Family History Medical History Relation Name Comments Heart Disease Father Hypertension Father Parkinsonism Mother Relation Name Status Comments Father Mother Social History Tobacco Use Types Packs/Day Years Used Date Smoking Tobacco: Former Smokeless Tobacco: Never Tobacco Cessation:Counseling Given: Not Answered Alcohol Use Standard Drinks/Week Comments Yes 0 (1 standard drink = 0.6 oz pur e alcohol) Sex and Gender Information Value Date Recorded Sex Assigned at Not on file Legal Sex Male 10:27 PM CDT Gender Identity Not on file Sexual Orientation Not on file Last Filed Vital Signs Vital Sign Reading Time Taken Comments Blood Pressure 112/62 01/16/2025 10:58 AM CDT Pulse 74 01/16/2025 10:58 AM CDT Temperature 36.7 C (98 F) 01/16/2025 10:58 AM CDT Respiratory Rate 16 01/16/2025 10:58 AM CDT Oxygen Saturation 96% 01/16/2025 10:58 AM CDT Inhaled Oxygen Concentration - - Weight 79.6 kg (175 lb 6.4 oz) 01/16/2025 10:58 AM CDT Height 177.8 cm (5' 10) 01/16/2025 10:58 AM CDT Body Mass Index 25.17 01/16/2025 10:58 AM CDT Plan of Treatment Upcoming Encounters Date Type Department Care Team (Late st Contact Info) Description 01/15/2026 11:00 AM CDT Office Visit [facility] [address] [place] [address] Eric Mccarthy MD [address] [place] [address] Health Maintenance Due Date Last Done Comments Hepatitis C Virus (HCV) Screening 1945 Respiratory Syncytial Virus (RSV) Immunization (Adult) (1 - 1-dose 75+ series) 2021 SARS-COV-2 Immunization ( season) 2024 10/15/2020, 09/24/2020 Influenza Immunization (#1) 03/27/202504/26, 06/02/2023, 05/27/2022, Additional history exists DTaP/Tdap/Td Immunization Discontinued 12/19/2020 TdaP Immunization Completed 12/19/2020 Zoster Immunization Completed 07/26/2021, Pneumococcal Immunization (50+ years) Completed 05/27/2022, 12/19/2020 Hepatitis B Immunization Aged Out No longer eligible based on patient's age to complete this topic Human Papillomavirus (HPV) Immunization Aged Out No longer eligible based on patient's age to complete this topic Meningococcal Immunization (ACWY) Aged Out No longer eligible based on patient's age to complete this topic Rotavirus Immunization Aged Out No lo nger eligible based on patient's age to complete this topic Insurance MEDICARE C AETNA Care Teams Black Off Worker Relationship Specialty Start Date End Date Jamal Del Rio MD PCP - General Family Medicine 01/13/22 Eric Mccarthy MD [address] [place] [address] Consulting Physician Neurology 01/13/22
--- OUTSIDE RECORDS SUMMARY | 2025-02-03 08:18 | XMS_ITS | Encounter Summary ---
Author Organization [facility] Address [address] [place] [address] Care Team Providers Care Python Django Developer Name Role Phone Unavailable Primary Care Provider Unavailabl e Encounter Details Date Type Department Care Team (Late st Contact Info) Description 04/20/2020 Lab Requisition [facility] [address] [facility] [facility] [address] Emil Nichols MD [address] [place] [address] Social History Tobacco Use Types Packs/Day Years [...] Procedure Name Priority Date/Time Associated Diagnosis Comments DERMATOPATHOLOGY Routine 04/19/2020 12:0 0 AM CDT documented in this encounter Results * DERMATOPATHOLOGY (04/19/2020 12:00 AM CDT) Case Report Dermatopathology Report Case: [id number] Authorizing Provider: Emil Nichols MD Collected: 04/19/2020 12:00 AM Ordering Location: [facility] Received: 04/20/2020 07:54 AM Pathologist: Vivian Stokes MD Specimen: Skin, left upper back 0 1:53 PM CDT DERMATOPATHOLOGY LABORATORY Final Diagnosis Specimen A. SKIN, left upper back: SQUAMOUS CELL CARCINOMA, WELL DIFFERENTIATED (C44.529) 0 1:53 PM CDT DERMATOPATHOLOGY LABORATORY at 1353 CDT Clinical History [facility]. Path # [id number]. 0 1:53 PM CDT DERMATOPATHOLOGY LABORATORY Gross Description Specimen A: Received is one formalin filled container labeled with the patient's name and designated left upper back. The specimen consists of a shave biopsy measuring [id number], bisected. Jar 0. 0 1:53 PM CDT DERMATOPATHOLOGY LABORATORY Microscopic Description Specimen A. SKIN, left upper back: Arising in the epidermis and extending into the dermis there are irregularly shaped aggregates of keratinocytes showing evidence of premature cornification. 0 1:53 PM CDT DERMATOPATHOLOGY LABORATORY Disclaimer An external and internal positive and negative controls are appropriate for the histochemical, immunohistochemical and immunofluorescence stain(s) in this case (if any), except where stated explicitly. The performance characteristics of the stain(s) cited in this report were developed and its performance characteristic determined by the Dermatopathology Laboratory at [facility], directed by Dr. Adri Fowler. These tests need not be, and therefore are not, approved by the [place] Food and Drug Administration. The tests are used for clinical purposes. Billing Codes Specimen Charges Stain Charges 12073 1 0 1:53 PM CDT DERMATOPATHOLOGY LABORATORY Embedded Images 0 1:53 PM CDT DERMATOPATHOLOGY LABORATORY Pathology/Cytolog y TISSUE SPECIMEN FROM SKIN / Unknown 04/19/2020 04/20/2020 7:54 AM CDT us Emil Nichols MD LAB - PATHOLOGY/CYTOLOGY ORDER MARYELLEN Final Result DERMATOPATHOLOGY LABORATORY [facility] - Department of Dermatology [address] [place] [address], [facility] [phone] documented in this encounter Visit Diagnoses Not on filedocumented in this encounter
--- OUTSIDE RECORDS SUMMARY | 2025-02-03 08:18 | XMS_ITS | Referral Summary ---
Author Organization [facility] [place] [address] Address [address] [place] [address] Care Team Providers Care Automatic Steel Tie Adjuster Name Role Phone Jamal Del Rio MD Primary Care Provider Encounters Date Type Department Care Team Description 01/17/2025 10:00 AM CDT Office Visit [facility] Cardiology [address] [place] [address] Aden Combs MD Paroxysmal atrial fibrillation (HCC) (Primary Dx); Nonsustained ventricular tachycardia (HCC); Paroxysmal supraventricular tachycardia (CMS/HCC); Pacemaker; Chronic anticoagulation 12/29/2024 8:00 AM CDT Ancillary Procedure [facility] Cardiology [address] [facility] [address] [place] [phone] Sick sinus syndrome (HCC); Paroxysmal atrial fibrillation (HCC) from Last 3 Months Allergies Active Allergy Reactions Criticality Noted Date Comments Shellfish Containing Products Other (See comments) Low Reaction: ABDOMINAL PAIN Ojivfof-Knl-Vvl Reductase Inhibitors Muscle pain Medium 01/18/2021 Intolerant [...] Date Dyslipidemia 07/16/2015 11/25/2021 Overview (10/31/2016): Dyslipidemia Social History Tobacco Use Types Packs/Day Years Used Date Smoking Tobacco: Former Cigarettes 0 04/18/1979 - 02/04/1980 Pipe Smokeless Tobacco: Never Comments:Very short time Alcohol Use Standard Drinks/Week Comments Yes 0 (1 standard drink = 0.6 oz pur e alcohol) Sex and Gender Information Value Date Recorded Sex Assigned at Not on file 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 Gender Identity Not on file Sexual Orientation [...] 01/17/2025 10:14 AM CDT Plan of Treatment Not on file Medical Devices Implanted Type Area Alignment Technician Device Identifier Shelf Expiration Date Model / Serial / Lot Pacemaker- [id number] Implanted:11/02 by Irena Tapia MD (Quantity not on file) Pacemaker Chest Medtronic SSS REVO MRI / [id number] / Insurance [facility] MEDICARE [facility] MEDICARE GOLD Care Teams Automatic Steel Tie Adjuster Relationship Specialty Start Date End Date Jamal Del Rio MD PCP - General Family Practice 01/11/21
--- OUTSIDE RECORDS SUMMARY | 2025-02-03 08:18 | XMS_ITS | Encounter Summary ---
Author Organization [facility] Address [address] [facility] [address] [place] [id number] Care Team Providers Care Spring Encaser Name Role Phone Patel Young MD, Levi Walton Primary Care Provider Jamal Del Rio MD Primary Care Provider Encounter Details Date Type Department Care Team (Late st Contact Info) Description 12/03/2016 Orders Only [facility] ProviderLennox MD [address] [place] [id number] Social History Tobacco Use Types Packs/Day Years Used Date Smoking Tobacco: Former Alcohol Use Standard Drinks/Week Comments Yes 0 (1 standard drink = 0.6 oz pur e alcohol) Sex and Gender Information Value Date Recorded Sex Assigned at Not on file 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 Historical Provider [facility] Final Result documented in this encounter Visit Diagnoses Not on filedocumented in this encounter Care Teams Spring Encaser Relationship Specialty Start Date End Date Levi Sweeney Jr., MD [address] [place] [address] PCP - General 10/24/16 01/10/21 Jamal Del Rio MD [address] [place] [address] PCP - General Family Practice 01/11/21 documented as of this encounter
[2025-02-03 12:07] LABS: Alanine Aminotransferase 23 U/L (6-50); Albumin Level 4.2 g/dL (3.5-5.1); Alkaline Phosphatase 45 U/L (38-126); Anion Gap 8 mmol/L (4-12); Aspartate Amino Transferase 57 U/L (17-59); Bilirubin,Total 0.5 mg/dL (0.2-1.3); Blood Urea Nitrogen 19 mg/dL (9-20); Calcium 8.9 mg/dL (8.4-10.2); Carbon Dioxide 23 mmol/L (22-30); Chloride 108 mmol/L (98-107); Estimated Glomerular Filt Rate > 60; Glucose 85 mg/dL (65-110); Potassium 4.1 mmol/L (3.4-5.0); Sodium 139 mmol/L (137-145); Total Protein 7.2 g/dL (6.3-8.2)
[2025-02-03 12:33] LABS: Thyroid Stimulating Hormone Reflex 3.110 uIU/mL (0.465-4.68)
[2025-02-03 12:47] LABS: Hemoglobin A1C 5.8 % (<5.7)
== END 2025-02-03 08:15 | disposition home or self-care (01) ==
PROVIDERS: PCP Family Medicine; Visit Provider Family Medicine
DX: R73.03 Prediabetes (principal); I10 Essential (primary) hypertension; E03.9 Hypothyroidism, unspecified
CPT/HCPCS: 36415; 80053; 83036; 84443